=== PATIENT | female | born 1980 | race Caucasian/White ===

== ENCOUNTER 2016-12-22 00:13 | Emergency (ER) | payer OTHER ==
--- NOTE | 2016-12-22 00:37 | ERPHSYRPT ---
- History of Present Illness Time Seen by Provider: 12/22/16 00:30 Source: patient Exam Limitations: no limitations Physician History: States "I think I'm withdrawing from opiates." Pt. buys Morphine and Dilaudid from the streets and last one was last night. Staying at home with mother and threatened to use razor blade to harm self. No previous suicidal attempts. Previously treated [facility][1] for drug addiction. States unemployed presently. Argument with mother about money, so she could go and buy pain. States used marijuana for "severe arthritis." Timing/Duration: today Severity: moderate Associated Symptoms: nausea, other (hurting all over), No vomiting, No headaches , No loss of appetite Allergies/Adverse Reactions: No Known Drug Allergies Allergy (Unverified 12/22/16 00:41) Home Medications: No Home Meds 1 ea MC UD 06/03/15 [History] Hx Tetanus, Diphtheria Vaccination/Date Given: Yes (up to date) Hx Influenza Vaccination/Date Given: No Hx Pneumococcal Vaccination/Date Given: No - Review of Systems Constitutional: No Fever, No Chills Eyes: No Symptoms Ears, Nose, & Throat: No Symptoms Respiratory: No Cough, No Dyspnea Cardiac: No Chest Pain, No Edema, No Syncope Abdominal/Gastrointestinal: No Abdominal Pain, No Nausea, No Vomiting, No Diarrhea Genitourinary Symptoms: No Dysuria Musculoskeletal: No Back Pain, No Neck Pain Skin: No Rash Neurological: No Dizziness, No Focal Weakness, No Sensory Changes Psychological: Drug Abuse, Anxiety, No Suicidal Ideations, No Hallucinations Endocrine: No Symptoms All Other Systems: Reviewed and Negative - Past Medical History Pertinent Past Medical History: Yes Neurological History: No Pertinent History ENT History: No Pertinent History Cardiac History: No Pertinent History Respiratory History: No Pertinent History Endocrine Medical History: No Pertinent History Musculoskeletal History: Arthritis GI Medical History: No Pertinent History History: No Pertinent History Psycho-Social History: No Pertinent History Female Reproductive Disorders: No Pertinent History Other Medical History: Chronic back pain, Hepatitis C - Past Surgical History Past Surgical History: Yes Gastrointestinal: Cholecystectomy Other Surgical History: Left knee, Back - Social History Smoking Status: Current every day smoker How long have you smoked: 8 Exposure to second hand smoke: Yes Alcohol Use: Socially Drug Use: marijuana, narcotics Patient Lives Alone: No Significant Family History: no pertinent family hx - Female History Hx Now: No - Nursing Vital Signs Nursing Vital Signs: Initial Vital Signs Temperature 98.5 F Temperature Source Oral Pulse Rate 68 Respiratory Rate 16 Blood Pressure [Right Arm] 108/78 Pain Intensity 6 - Physical Exam General Appearance: no apparent distress, alert, other (flat affect) Eye Exam: PERRL/EOMI, eyes nml inspection Ears, Nose, Throat Exam: normal ENT inspection, TMs normal, pharynx normal, moist mucous membranes Neck Exam: normal inspection, non-tender, supple, full range of motion Respiratory Exam: normal breath sounds, lungs clear, No respiratory distress Cardiovascular Exam: regular rate/rhythm, normal heart sounds, normal peripheral pulses Gastrointestinal/Abdomen Exam: soft, normal bowel sounds, No tenderness, No mass Back Exam: normal inspection, normal range of motion, No CVA tenderness, No vertebral tenderness Extremity Exam: normal inspection, normal range of motion, pelvis stable Neurologic Exam: alert, oriented x 3, cooperative, normal mood/affect, nml cerebellar function, nml station & gait, sensation nml, No motor deficits Skin Exam: normal color, warm, dry, No rash Lymphatic Exam: No adenopathy SpO2: 98 Oxygen Delivery: Room Air Comments: 12/22/16 01:54 psych exam: Patient currently denies any suicidal or homicidal ideations. Patient denies any visual or her or auditory hallucination. Ordered Tests: Active Orders 24 hr Category Date Time Status ACETAMINOPHEN Stat Lab 12/22/16 00:55 Completed BMP Stat Lab 12/22/16 00:55 Completed CBC W DIFF Stat Lab 12/22/16 00:55 Completed Ethyl Alcohol,Urine Stat Lab 12/22/16 00:50 Completed HCG,QUALITATIVE URINE Stat Lab 12/22/16 00:50 Completed SALICYLATE Stat Lab 12/22/16 00:55 Completed UA W/ MICROSCOPIC Stat Lab 12/22/16 00:50 Completed Urine Triage Profile Stat Lab 12/22/16 00:50 Completed Medication Summary Discontinued Medications Generic Name Dose Route Start Last Admin Trade Name Eliecerq PRN Reason Stop Dose Admin Acetaminophen 1,000 mg 12/22/16 00:46 12/22/16 00:50 Tylenol Extra Strength 500 Mg PO 12/22/16 00:47 1,000 mg STAT ONE Administration Acetaminophen Confirm 12/22/16 00:47 Tylenol Extra Strength 500 Mg Administered 12/22/16 00:48 Dose 1,000 mg .ROUTE .STK-MED ONE Lab/Rad Data: Laboratory Result Diagrams 12/22/16 00:55 12/22/16 00:55 Laboratory Results 12/22/16 12/22/16 12/22/16 Range/Units 00:55 00:55 00:50 WBC 8.7 (4.0-10.5) K/mm3 RBC 4.96 (4.1-5.4) M/mm3 Hgb 13.7 (12.0-16.0) gm/dl Hct 41.2 (35-47) % MCV 83.1 (78-100) fl MCH 27.6 (26-32) pg MCHC 33.3 (32-36) g/dl RDW 14.1 H (11.5-14.0) % Plt Count 318 (150-450) K/mm3 MPV 9.8 H (6-9.5) fl Gran % 60.3 (36.0-66.0) % Lymphocytes % 31.3 (24.0-44.0) % Monocytes % 6.7 (0.0-12.0) % Eosinophils % 1.5 (0.00-5.0) % Basophils % 0.2 (0.0-0.4) % Basophils # 0.02 (0-0.4) Sodium 143 (136-145) mEq/L Potassium 3.9 (3.5-5.1) mEq/L Chloride 106 (98-107) mEq/L Carbon Dioxide 26.2 (21-32) mEq/L Anion Gap 14.3 (5-15) MEQ/L BUN 13 (9-20) mg/dL Creatinine 0.85 (0.55-1.30) mg/dl Estimated GFR > 60 ML/MIN Glucose 98 (70-110) MG/DL Calcium 9.1 (8.5-10.1) mg/dL Ur Collection Type Urine Color (YELLOW) Urine Appearance (CLEAR) Urine pH (5-6) Ur Specific [place] (1.005-1.025) Urine Protein (Negative) Urine Glucose (UA) (NEGATIVE) mg/dL Urine Ketones (NEGATIVE) Urine Nitrite (NEGATIVE) Urine Bilirubin (NEGATIVE) Urine Urobilinogen (0-1) mg/dL Urine WBC (Auto) (NEGATIVE) Urine RBC (Auto) (0-5) Jan/ul Urine Microscopic RBC (0-2) /HPF Ur Epithelial Cells (FEW) /HPF Urine Bacteria (NEGATIVE) /HPF Urine HCG, Qual NEGATIVE (Negative) Salicylates 4.8 (2.8-20.0) mg/dl Urine Opiates Level (NEGATIVE) Ur Methadone (NEGATIVE) Acetaminophen < 2.0 L (10-30) ug/ml Urine Barbiturates (NEGATIVE) Ur Phencyclidine (PCP) (NEGATIVE) Urine Amphetamine (NEGATIVE) U Benzodiazepine Level (NEGATIVE) Urine Cocaine (NEGATIVE) Urine Marijuana (THC) (NEGATIVE) Urine Ethyl Alcohol (0.00-20) mg/dl Specimen Received 12/22/16 12/22/16 12/22/16 Range/Units 00:50 00:50 00:50 WBC (4.0-10.5) K/mm3 RBC (4.1-5.4) M/mm3 Hgb (12.0-16.0) gm/dl Hct (35-47) % MCV (78-100) fl MCH (26-32) pg MCHC (32-36) g/dl RDW (11.5-14.0) % Plt Count (150-450) K/mm3 MPV (6-9.5) fl Gran % (36.0-66.0) % Lymphocytes % (24.0-44.0) % Monocytes % (0.0-12.0) % Eosinophils % (0.00-5.0) % Basophils % (0.0-0.4) % Basophils # (0-0.4) Sodium (136-145) mEq/L Potassium (3.5-5.1) mEq/L Chloride (98-107) mEq/L Carbon Dioxide (21-32) mEq/L Anion Gap (5-15) MEQ/L BUN (9-20) mg/dL Creatinine (0.55-1.30) mg/dl Estimated GFR ML/MIN Glucose (70-110) MG/DL Calcium (8.5-10.1) mg/dL Ur Collection Type CLEAN CATCH Urine Color YELLOW (YELLOW) Urine Appearance CLEAR (CLEAR) Urine pH 5.5 5.5 (5-6) Ur Specific [place] >=1.030 (1.005-1.025) Urine Protein TRACE (Negative) Urine Glucose (UA) NEGATIVE (NEGATIVE) mg/dL Urine Ketones TRACE (NEGATIVE) Urine Nitrite NEGATIVE (NEGATIVE) Urine Bilirubin NEGATIVE (NEGATIVE) Urine Urobilinogen 0.2 (0-1) mg/dL Urine WBC (Auto) NEGATIVE (NEGATIVE) Urine RBC (Auto) TRACE NON-HEM (0-5) Jan/ul Urine Microscopic RBC 0-2 (0-2) /HPF Ur Epithelial Cells FEW (FEW) /HPF Urine Bacteria RARE (NEGATIVE) /HPF Urine HCG, Qual (Negative) Salicylates (2.8-20.0) mg/dl Urine Opiates Level NEG. (NEGATIVE) Ur Methadone NEG. (NEGATIVE) Acetaminophen (10-30) ug/ml Urine Barbiturates NEG. (NEGATIVE) Ur Phencyclidine (PCP) NEG. (NEGATIVE) Urine Amphetamine NEG. (NEGATIVE) U Benzodiazepine Level NEG. (NEGATIVE) Urine Cocaine NEG. (NEGATIVE) Urine Marijuana (THC) POS. (NEGATIVE) Urine Ethyl Alcohol < 3 (0.00-20) mg/dl Specimen Received 12/22/16:0050 - Progress Progress: improved Progress Note: 12/22/16 01:57 [facility] psychiatric unit was notified and informed about patient. Awaiting steam conditioner operatorbingo caller to determine disposition. 12/22/16 04:[address] [facility] and they recommend that patient to be treated for drug addiction. Several facilities were discussed. We will call and informed them about patient. 12/22/16 06:44 patient was accepted for further care by Shantell Pierre. She will be transfer via ambulance to this facility. Patient remains hemodynamically stable , lying on stretcher bed comfortably and does not appear to be any acute distress. 12/22/16 06:47 Counseled pt/family regarding: diagnosis - Departure Time of Disposition: 04:28 Departure Disposition: Transfer ([facility]) Clinical Impression: Chemical dependency Condition: Stable Critical Care Time: No Referrals: SANTY HARO MD [Primary Care Provider] -
[2016-12-22] MEDS ORDERED: TYLENOL EXTRA STRENGTH 500 MG PO ONE (00:46)
[2016-12-22] MEDS ORDERED: TYLENOL EXTRA STRENGTH 500 MG ONE ×2 (00:47→06:49)
[2016-12-22 01:02] LABS: BASOPHIL % 0.2 % (0.0-0.4); Eosinophil % 1.5 % (0.00-5.0); Granulocytes % 60.3 % (36.0-66.0); Lymphocytes % 31.3 % (24.0-44.0); Mean Cell Volume 83.1 fl (78-100); Mean Corpuscular Hemoglobin 27.6 pg (26-32); Mean Platelet Volume 9.8 fl (6-9.5); Monocytes % 6.7 % (0.0-12.0); Platelet Count 318 K/mm3 (150-450); Red Blood Count 4.96 M/mm3 (4.1-5.4); Red Cell Distribution Width 14.1 % (11.5-14.0); White Blood Count 8.7 K/mm3 (4.0-10.5)
[2016-12-22 01:08] LABS: Collection Type CLEAN CATCH
[2016-12-22 01:09] LABS: Bacteria RARE /HPF (NEGATIVE); COMPLETE URINE MICROSCOPIC? YES; Epithelial Cells FEW /HPF (FEW); Ph 5.5 (5-6)
[2016-12-22 01:24] LABS: ANION GAP 14.3 MEQ/L (5-15); BLOOD UREA NITROGEN 13 mg/dL (9-20); CHLORIDE 106 mEq/L (98-107); Carbon Dioxide 26.2 mEq/L (21-32); Glucose 98 MG/DL (70-110); Potassium 3.9 mEq/L (3.5-5.1); SODIUM 143 mEq/L (136-145)
[2016-12-22 01:26] LABS: ACETAMINOPHEN < 2.0 ug/ml (10-30)
[2016-12-22 04:23] VITALS: O2SAT 98
[2016-12-22] MEDS: TYLENOL EXTRA STRENGTH 500 MG PO ONE ×2 (06:50→06:56)
[2016-12-22 07:21] VITALS: BP 128/78; PULSE 72
== END 2016-12-22 07:24 | disposition short-term general hospital (02) ==
LOC: ED 00:13
DX: F11.23 Opioid dependence with withdrawal (principal)
CPT/HCPCS: 36415; 80048; 80307; 80320; 81000; 83986; 84703; 85025; 99283; 99284; 99285; G0481

== ENCOUNTER 2018-03-08 10:24 | Emergency (ER) | payer OTHER ==
--- NOTE | 2018-03-08 11:06 | ERPHSYRPT ---
- History of Present Illness Time Seen by Provider: 03/08/18 10:53 Source: patient Exam Limitations: no limitations Physician History: Pt started c/o itching rash on her shoulders 3 days ago. She denies other complaints, no cough, fever, SOB. She denies taking new medications. Timing/Duration: day(s) (3) Quality: itchy Severity: mild Location: torso Possible Causes: no cause identified Allergies/Adverse Reactions: No Known Drug Allergies Allergy (Verified 03/08/18 10:51) Home Medications: Desvenlafaxine [Desvenlafaxine ER] 50 mg PO DAILY 03/08/18 [History] Methylphenidate [Daytrana] 10 mg TOP DAILY 03/08/18 [History] Quetiapine Fumarate [Quetiapine Fumarate ER] 50 mg PO DAILY 03/08/18 [History] Quetiapine Fumarate [Quetiapine Fumarate ER] 200 mg PO HS 03/08/18 [History] Hx Tetanus, Diphtheria Vaccination/Date Given: Yes (up to date) Hx Influenza Vaccination/Date Given: No Hx Pneumococcal Vaccination/Date Given: No - Review of Systems Constitutional: No Symptoms Skin: Pruritis, Rash All Other Systems: Reviewed and Negative - Past Medical History Pertinent Past Medical History: Yes Neurological History: No Pertinent History ENT History: No Pertinent History Cardiac History: No Pertinent History Respiratory History: No Pertinent History Endocrine Medical History: No Pertinent History Musculoskeletal History: Arthritis GI Medical History: No Pertinent History History: No Pertinent History Psycho-Social History: No Pertinent History Female Reproductive Disorders: No Pertinent History Other Medical History: Chronic back pain, Hepatitis C - Past Surgical History Past Surgical History: Yes Gastrointestinal: Cholecystectomy Other Surgical History: Left knee, Back - Social History Smoking Status: Current every day smoker How long have you smoked: 8 Exposure to second hand smoke: Yes Alcohol Use: Socially Drug Use: marijuana, narcotics Patient Lives Alone: No Significant Family History: no pertinent family hx - Physical Exam General Appearance: no apparent distress Eye Exam: eyes nml inspection Ears, Nose, Throat Exam: normal ENT inspection, pharynx normal Neck Exam: normal inspection, non-tender, supple Respiratory Exam: normal breath sounds, lungs clear, No chest tenderness Cardiovascular Exam: regular rate/rhythm, normal heart sounds, normal peripheral pulses Gastrointestinal/Abdomen Exam: soft, normal bowel sounds, No tenderness Back Exam: normal inspection Extremity Exam: normal inspection Neurologic Exam: alert, oriented x 3 Skin Exam: normal color, warm, dry, rash (few 4-6 mm raised, salmon colred spots on both anterior shoulders, no vesicules or other lesions. ) Lymphatic Exam: No adenopathy SpO2 Interpretation: normal Oxygen Delivery: Room Air - Course Nursing assessment & vital signs reviewed: Yes - Progress Progress: unchanged Progress Note: 03/08/18 11:06 Pt has been stable, afebrile. - Departure Time of Disposition: 11:06 Departure Disposition: Home Clinical Impression: Tinea corporis Condition: Stable Critical Care Time: No Referrals: LAZARA RICHARD [Primary Care Provider] - Additional Instructions: Keep area dry, use ointment BID, follow up with your doctor in 1-2 weeks! Prescriptions: Clotrimazole Cream 30 gm [Lotrimin Cream 30 gm] 15 gm TP BID #1 cream
[2018-03-08 11:30] VITALS: BP 113/89; PULSE 64; O2SAT 99
== END 2018-03-08 11:30 | disposition home or self-care (01) ==
LOC: ED 10:24
DX: B35.4 Tinea corporis (principal); Z79.899 Other long term (current) drug therapy
CPT/HCPCS: 99281; 99283

== ENCOUNTER 2020-04-20 08:53 | Emergency (ER) | payer MEDICAID, OTHER ==
[2020-04-20] MEDS ORDERED: TORAdol 30 mg Injection IM ONE (09:17)
[2020-04-20] MEDS ORDERED: TORAdol 30 mg Injection ONE (09:19)
--- NOTE | 2020-04-20 09:23 | ERPHSYRPT ---
- History of Present Illness Time Seen by Provider: 04/20/20 09:10 Source: patient Exam Limitations: no limitations Patient Subjective Stated Complaint: Pt states "For the past week when I get off work my feet have been really hurting. Today I was at work and it feels like electric shocks going into my feet." Triage Nursing Assessment: Pt presented alert and oriented X 3, skin wpd pt ambulates with a slow limping gait, able to speak in clear full sentences. Pt feet not swollen, no bruising noted. Physician History: Patient is a 39-year-old female presents to our ED with complaints of bilateral feet pain. Patient states that pain is chronic but has gotten worse over the past several days. 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 Patient is on her feet 8 hours/day almost daily. After working an 8-hour shift patient experiences a deep aching sensation to both feet. The pain is primarily at the arch and dorsum of her feet. She occasionally experiences a sharp shooting sensation of her leg. No history of VTE. No calf pain. Homans sign negative. No chest pain or shortness of breath. Pain reproduced with weightbearing and palpation to the instep and dorsum of her foot. Pain significantly improves with rest. Patient states on her days off of work she essentially experiences minimal to no pain. Patient denies trauma. No falls. No blunt injuries. Patient foot pain occurs during the and of her work shifts and later after. Patient denies new shoe wear. Patient shoes were examined by ED MD. Dr. See also a licensed physical therapist and has experience with foot pathology and examining shoe wear. Patient shoe provides no arch support. Patient shoes are worn. Patient states she is otherwise generally healthy. Patient voices no other complaints at this time. Method of Injury: other (Prolonged walking and weightbearing. Overutilization injury.) Allergies/Adverse Reactions: No Known Drug Allergies Allergy (Verified 03/08/18 10:51) Home Medications: Desvenlafaxine [Desvenlafaxine ER] 50 mg PO DAILY 03/08/18 [History] Quetiapine Fumarate [Quetiapine Fumarate ER] 50 mg PO DAILY 03/08/18 [History] Quetiapine Fumarate [Quetiapine Fumarate ER] 200 mg PO HS 03/08/18 [History] Amphet Asp/Amphet/D-Amphet [Dextroamp-Amphet ER 20 mg Cap] 20 mg PO BID [History] Hx Tetanus, Diphtheria Vaccination/Date Given: No Hx Influenza Vaccination/Date Given: No Hx Pneumococcal Vaccination/Date Given: No Immunizations Up to Date: Yes Travel Risk - International Travel Have you traveled outside of the country in past 3 weeks: No Have you or anyone close to you been diagnosed with or: No Do your reside in a community with a known COVID-19 case?: Yes If Yes where:: [place] - Coronavirus Screening Has patient experienced Coronavirus symptoms: No - Review of Systems Constitutional: No Symptoms, No Fever, No Chills Eyes: No Symptoms Ears, Nose, & Throat: No Symptoms Respiratory: No Symptoms, No Cough, No Dyspnea Cardiac: No Symptoms, No Chest Pain, No Edema, No Syncope Abdominal/Gastrointestinal: No Symptoms, No Abdominal Pain, No Nausea, No Vomiting, No Diarrhea Genitourinary Symptoms: No Symptoms, No Dysuria Musculoskeletal: No Symptoms, Other (Bilateral foot pain.), No Back Pain, No Neck Pain Skin: No Symptoms, No Rash Neurological: No Symptoms, No Dizziness, No Focal Weakness, No Sensory Changes Psychological: No Symptoms Endocrine: No Symptoms Hematologic/Lymphatic: No Symptoms Immunological/Allergic: No Symptoms All Other Systems: Reviewed and Negative - Past Medical History Pertinent Past Medical History: Yes Neurological History: No Pertinent History ENT History: No Pertinent History Cardiac History: No Pertinent History Respiratory History: No Pertinent History Endocrine Medical History: No Pertinent History Musculoskeletal History: Arthritis GI Medical History: No Pertinent History History: No Pertinent History Psycho-Social History: No Pertinent History Female Reproductive Disorders: No Pertinent History Other Medical History: Chronic back pain, Hepatitis C - Past Surgical History Past Surgical History: Yes Gastrointestinal: Cholecystectomy Other Surgical History: Left knee, Back - Social History Smoking Status: Current every day smoker How long have you smoked: years Exposure to second hand smoke: Yes Alcohol Use: Socially Drug Use: marijuana Patient Lives Alone: No Significant Family History: no pertinent family hx - Female History Hx Last Menstrual Period: 04/05/2020 Hx Now: No - Nursing Vital Signs Nursing Vital Signs: Initial Vital Signs Temperature 97.8 F 04/20/20 08:59 Pulse Rate 82 04/20/20 08:59 Respiratory Rate 22 04/20/20 08:59 Blood Pressure 166/92 04/20/20 08:59 O2 Sat by Pulse Oximetry 98 04/20/20 08:59 Pain Scale Pain Intensity 7 - Physical Exam General Appearance: alert Eyes, Ears, Nose, Throat Exam: moist mucous membranes Neck Exam: non-tender, supple Cardiovascular/Respiratory Exam: chest non-tender, normal breath sounds, regular rate/rhythm, no respiratory distress Gastrointestinal/Abdominal Exam: non-tender, guarding Back Exam: normal inspection, No vertebral tenderness Hips Exam: bilateral: non-tender, normal inspection, normal range of motion, no evidence of injury Legs Exam: bilateral leg: non-tender, normal inspection, normal range of motion , no evidence of injury Knees Exam: bilateral knee: non-tender, normal inspection, normal range of motion, no evidence of injury Ankle Exam: bilateral ankle: non-tender, normal inspection, normal range of motion, no evidence of injury Foot Exam: bilateral foot: soft tissue tenderness (Patient has tenderness palpation at the arch of both feet. There is some tenderness along the plantar fascia. Most of her tenderness is at the arch and dorsum of her feet. Overlying soft tissue intact. No signs of trauma. Compartments are soft. Cap refill less than 2 seconds. Sensation to light touch intact. Motor function within normal limits. Normal function EHL FHL DF and PF.) Neuro/Tendon Exam: normal sensation, normal motor functions, no evidence tendon injury, No motor deficit Mental Status Exam: alert, oriented x 3, cooperative Skin Exam: normal color, warm, dry SpO2 Interpretation: normal SpO2: 98 O2 Delivery: Room Air - Course Nursing assessment & vital signs reviewed: Yes Ordered Tests: Medication Summary Discontinued Medications Generic Name Dose Route Start Last Admin Trade Name Galo PRN Reason Stop Dose Admin Ketorolac Tromethamine 30 mg 04/20/20 09:17 04/20/20 09:20 Toradol 30 Mg Injection IM 04/20/20 09:18 30 mg STAT ONE Administration Ketorolac Tromethamine Confirm 04/20/20 09:19 Toradol 30 Mg Injection Administered 04/20/20 09:20 Dose 30 mg .ROUTE .STK-MED ONE - Progress Progress: improved Progress Note: 04/20/20 09:38 Patient denies the possibility of . She has no allergy to NSAIDs. Patient received Toradol IM. Patient's pain is likely due to repetitive motion , persistent long periods of walking while at work, pronated feet and collapsed arches and excessive weight due to obesity. Patient referred to podiatry for further evaluation and possible customized foot orthotics. Patient given a work note for 4 days off. Upon return patient should have more frequent rest periods until long-term resolution/foot orthotics are received Plan of care discussed with patient. She agrees to follow-up as indicated/ discussed. Patient voices no other complaints or concerns at this time. Counseled pt/family regarding: diagnosis, need for follow-up - Departure Departure Disposition: Home Clinical Impression: Pronated foot, Fallen arches, Repetitive motion disorder of right foot, Repetitive motion disorder of left foot Condition: Stable Critical Care Time: No Referrals: LAZARA RICHARD [Primary Care Provider] - KAMILA MONTEMAYOR [PODIATRY STAFF] - Additional Instructions: Please call Dr. Montemayor at the [facility] in [place]. Telephone number is area code [phone] Discharge/Care Plan TIMMY BROWN GANESH was seen on 04/20/20 in the Emergency Room. The patient was counseled regarding Diagnosis,Lab results, Imaging studies, need for follow up and when to return to the Emergency Room. Prescriptions given: Discharge Note I have spoken with the patient and/or caregivers. I have explained the patient' s condition, diagnosis and treatment plan based on the information available to me at this time. I have answered the patient's and/or caregiver's questions and addressed any concerns. The patient and/or caregivers have as good understanding of the patient's diagnosis, condition and treatment plan as can be expected at this point. The vital signs have been stable. The patient's condition is stable and appropriate for discharge from the emergency department. The patient will pursue further outpatient evaluation with the primary care physician or other designated or consulting physician as outlined in the discharge instructions. The patient and/or caregivers are agreeable to this plan of care and follow-up instructions have been explained in detail. The patient and/or caregivers have received these instruction. The patient/and or caregivers are aware that any significant change in condition or worsening of symptoms should prompt an immediate return to this or the closest emergency department or call 911. Forms: Work/School Release Form
[2020-04-20 09:27] VITALS: BP 122/83; PULSE 71
[2020-04-20 09:30] VITALS: O2SAT 98
== END 2020-04-20 09:40 | disposition home or self-care (01) ==
LOC: ED 08:53
DX: M21.6X2 Other acquired deformities of left foot (principal); M21.6X1 Other acquired deformities of right foot; M21.42 Flat foot [pes planus] (acquired), left foot; M21.41 Flat foot [pes planus] (acquired), right foot; X50.3XXA Overexertion from repetitive movements, initial encounter; Y93.01 Activity, walking, marching and hiking; Y92.511 Restaurant or cafe as the place of occurrence of the external cause; Y99.0 Civilian activity done for income or pay
CPT/HCPCS: 96372; 99283; J1885

== ENCOUNTER 2020-05-21 09:23 | Emergency (ER) | payer MEDICAID ==
[2020-05-21] MEDS ORDERED: SILVADENE 50 GM TP ONE ×2 (09:50→09:52)
--- NOTE | 2020-05-21 09:58 | ERPHSYRPT ---
- History of Present Illness Time Seen by Provider: 05/21/20 09:53 Source: patient Exam Limitations: no limitations Patient Subjective Stated Complaint: Pt burned her upper abdomen on a steam burner while working at [employer] 2 days ago, pt states that the pain has gotten worse now that it is peeling Triage Nursing Assessment: Pt brought self to the ER, vitals wnl, pt rates pain on abdomen as 9/10, 7x5 cm burn that has blistered and peeled Physician History: Pt burned her upper abdomen on a steam burner while working at [employer] 2 days ago, pt states that the pain has gotten worse now that it is peeling Timing/Duration: day(s) (two days ago) Quality: burning Severity: mild Location: torso Associated Symptoms: denies symptoms Allergies/Adverse Reactions: No Known Drug Allergies Allergy (Verified 05/21/20 09:35) Home Medications: Desvenlafaxine [Desvenlafaxine ER] 50 mg PO DAILY 03/08/18 [History] Quetiapine Fumarate [Quetiapine Fumarate ER] 50 mg PO DAILY 03/08/18 [History] Quetiapine Fumarate [Quetiapine Fumarate ER] 200 mg PO HS 03/08/18 [History] Amphet Asp/Amphet/D-Amphet [Dextroamp-Amphet ER 20 mg Cap] 20 mg PO BID 04/20/20 [History] Hx Tetanus, Diphtheria Vaccination/Date Given: No Hx Influenza Vaccination/Date Given: No Hx Pneumococcal Vaccination/Date Given: No Travel Risk - International Travel Have you traveled outside of the country in past 3 weeks: No - Coronavirus Screening Are you exhibiting any of the following symptoms?: No Close contact with a COVID-19 positive Pt in past 14-21 Days: No - Review of Systems Constitutional: No Symptoms Eyes: No Symptoms Ears, Nose, & Throat: No Symptoms Respiratory: No Symptoms Cardiac: No Symptoms Abdominal/Gastrointestinal: No Symptoms Genitourinary Symptoms: No Symptoms Musculoskeletal: No Symptoms Skin: Cellulitis Neurological: No Symptoms Psychological: No Symptoms Endocrine: No Symptoms Hematologic/Lymphatic: No Symptoms - Past Medical History Pertinent Past Medical History: Yes Neurological History: No Pertinent History ENT History: No Pertinent History Cardiac History: No Pertinent History Respiratory History: No Pertinent History Endocrine Medical History: No Pertinent History Musculoskeletal History: Arthritis GI Medical History: No Pertinent History History: No Pertinent History Psycho-Social History: No Pertinent History Female Reproductive Disorders: No Pertinent History Other Medical History: Chronic back pain, Hepatitis C - Past Surgical History Past Surgical History: Yes Gastrointestinal: Cholecystectomy Other Surgical History: Left knee, Back - Social History Smoking Status: Current every day smoker How long have you smoked: years Exposure to second hand smoke: Yes Alcohol Use: Socially Drug Use: marijuana Patient Lives Alone: No Significant Family History: no pertinent family hx - Female History Hx Last Menstrual Period: 05/21/2020 Hx Now: No - Nursing Vital Signs Nursing Vital Signs: Initial Vital Signs Temperature 98.3 F 05/21/20 09:28 Pulse Rate 92 H 05/21/20 09:28 Blood Pressure 116/100 05/21/20 09:28 O2 Sat by Pulse Oximetry 99 05/21/20 09:28 Pain Scale Pain Intensity 9 - Physical Exam General Appearance: no apparent distress Eye Exam: PERRL/EOMI Ears, Nose, Throat Exam: normal ENT inspection Neck Exam: normal inspection Respiratory Exam: normal breath sounds Cardiovascular Exam: regular rate/rhythm Gastrointestinal/Abdomen Exam: soft Pelvic Exam: not done Rectal Exam: deferred Back Exam: normal inspection Extremity Exam: normal inspection Neurologic Exam: alert, oriented x 3 Skin Exam: other (superficial burn on mid abdomen, ~1% area) SpO2: 99 O2 Delivery: Room Air Procedures - Laceration/Wound Repair Anterior Abdomen Wound Location: abdomen Wound Length (cm): 7 Wound's Depth, Shape: superficial Wound Explored: burn Irrigated: No Hibiclens Prep: No Sterile Dressing Applied?: Yes Progress: 05/21/20 09:57 silvadine applied - Course Nursing assessment & vital signs reviewed: Yes Ordered Tests: Active Orders 24 hr Category Date Time Status Wound Care STAT Care 05/21/20 09:51 Active Medication Summary Generic Name Dose Route Start Last Admin Trade Name Freq PRN Reason Stop Dose Admin Silver Sulfadiazine 50 gm 05/21/20 09:52 Silvadene 50 Gm TP 05/21/20 09:53 STAT ONE Discontinued Medications Generic Name Dose Route Start Last Admin Trade Name Freq PRN Reason Stop Dose Admin Silver Sulfadiazine Confirm 05/21/20 09:50 Silvadene 50 Gm Administered 05/21/20 09:51 Dose 50 gm TP .STK-MED ONE - Progress Progress: improved, pain not gone completely Counseled pt/family regarding: diagnosis, need for follow-up - Departure Departure Disposition: Home Clinical Impression: Burn Condition: Stable Critical Care Time: No Referrals: LAZARA RICHARD [Primary Care Provider] - Instructions: [facility] Prescriptions: Silver Sulfadiazine 50 gm [Silvadene 50 gm] 2 gm TP DAILY #50 cream.gm.
[2020-05-21 10:20] VITALS: BP 104/70; PULSE 78; O2SAT 97
== END 2020-05-21 10:20 | disposition home or self-care (01) ==
LOC: ED 09:23
DX: T21.12XA Burn of first degree of abdominal wall, initial encounter (principal); T31.0 Burns involving less than 10% of body surface; X13.1XXA Other contact with steam and other hot vapors, initial encounter; Y93.G2 Activity, grilling and smoking food; Y92.511 Restaurant or cafe as the place of occurrence of the external cause; Y99.0 Civilian activity done for income or pay
CPT/HCPCS: 99283; A9270-GY

== ENCOUNTER 2021-02-02 02:45 | Emergency (ER) | payer OTHER ==
[2021-02-02] MEDS ORDERED: BABY ASPIRIN 81 MG CHEW PO ONE (03:11)
[2021-02-02] MEDS ORDERED: MORPHINE SULFATE 2 MG INJ IV ONE (03:11)
[2021-02-02] MEDS ORDERED: Zofran 4 MG/2 ML VIAL IV ONE (03:11)
[2021-02-02] MEDS ORDERED: Zofran 4 MG/2 ML VIAL ONE (03:15)
[2021-02-02] MEDS ORDERED: MORPHINE SULFATE 2 MG INJ ONE (03:15)
--- NOTE | 2021-02-02 03:19 | ERPHSYRPT ---
<DEANNE HASSAN - Last Filed: 02/02/21 06:45> - History of Present Illness Time Seen by Provider: 02/02/21 02:55 Historian: patient Exam Limitations: no limitations Patient Subjective Stated Complaint: "My chest hurts so bad." Triage Nursing Assessment: . Physician History: This is a 40-year-old obese white female has a history of chronic back pain and hepatitis and is a smoker of cigarettes and presents with sudden onset of central nonradiating sharp chest pain that occurs with deep breathing. She states she is never had this before. She felt fine until she was sitting up in bed playing [employer] and she felt this pain. It has not gone away in the 2 hours that she has had the pain. She has not had a fever. She denies cough. She has no abdominal pain. She denies nausea vomiting diarrhea. Timing/Duration: today Activities at Onset: rest Quality: sharpness, stabbing Location: substernal, central Chest Pain Radiation: no radiation Severity of Pain-Max: moderate Severity of Pain-Current: moderate Associated Symptoms: hurts to breathe Prior Chest Pain/Cardiac Workup: no prior chest pain Nitro Today/Relief: no nitro taken today Aspirin Treatment Today: no aspirin today Allergies/Adverse Reactions: No Known Drug Allergies Allergy (Verified 02/02/21 02:52) Home Medications: Methylphenidate [Daytrana] 1 patch TD DAILY 02/02/21 [History] Quetiapine Fumarate [Seroquel Xr] 1 tab PO BID 02/02/21 [History] Sofosbuvir/Velpatasvir [Epclusa 400 mg-100 mg Tablet] 1 tab PO DAILY 02/02/21 [History] Hx Tetanus, Diphtheria Vaccination/Date Given: Yes Hx Influenza Vaccination/Date Given: Yes Hx Pneumococcal Vaccination/Date Given: No Travel Risk - International Travel Have you traveled outside of the country in past 3 weeks: No - Coronavirus Screening Are you exhibiting any of the following symptoms?: No Close contact with a COVID-19 positive Pt in past 14-21 Days: No - Review of Systems Constitutional: No Symptoms Eyes: No Symptoms Ears, Nose, & Throat: No Symptoms Respiratory: No Symptoms Cardiac: Chest Pain (With deep inspiration) Abdominal/Gastrointestinal: No Symptoms Genitourinary Symptoms: No Symptoms Musculoskeletal: No Symptoms Skin: No Symptoms Neurological: No Symptoms Psychological: No Symptoms Endocrine: No Symptoms Hematologic/Lymphatic: No Symptoms Immunological/Allergic: No Symptoms All Other Systems: Reviewed and Negative - Past Medical History Pertinent Past Medical History: Yes Neurological History: No Pertinent History ENT History: No Pertinent History Cardiac History: No Pertinent History Respiratory History: No Pertinent History Endocrine Medical History: No Pertinent History Musculoskeletal History: Arthritis GI Medical History: No Pertinent History History: No Pertinent History Psycho-Social History: No Pertinent History Female Reproductive Disorders: No Pertinent History Other Medical History: Chronic back pain, Hepatitis C - Past Surgical History Past Surgical History: Yes Gastrointestinal: Cholecystectomy Other Surgical History: Left knee, Back - Social History Smoking Status: Current every day smoker How long have you smoked: years Exposure to second hand smoke: Yes Alcohol Use: Socially Drug Use: marijuana Patient Lives Alone: No Significant Family History: no pertinent family hx - Female History Hx Now: No - Physical Exam General Appearance: no apparent distress, alert, anxiety, obese Eye Exam: PERRL/EOMI, eyes nml inspection Ears, Nose, Throat Exam: normal ENT inspection, moist mucous membranes Neck Exam: normal inspection, non-tender, supple, full range of motion Respiratory Exam: normal breath sounds, chest tenderness (Deep inspiration), lungs clear, airway intact, No respiratory distress Cardiovascular Exam: regular rate/rhythm, normal heart sounds, normal peripheral pulses Gastrointestinal/Abdomen Exam: soft, normal bowel sounds, No tenderness Pelvic Exam: not done Rectal Exam: not done Back Exam: normal inspection, normal range of motion, No CVA tenderness, No vertebral tenderness Extremity Exam: normal inspection, normal range of motion, pelvis stable Neurologic Exam: alert, oriented x 3, cooperative, 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 When comparing to EKG dated 02/28/2016 there are no changes.) - Progress Progress: improved Air Movement: good Progress Note: 02/02/21 06:46 Chest x-ray shows no acute cardiopulmonary process 02/02/21 06:55 Medical decision making: This patient continues to have chest pain although her work-up thus far is negative. We are waiting the second troponin. If this is elevated and in the abnormal range she will need to be transferred to facility that has cardiology. If this is also normal then I think the best approach is to perform a CTA of the chest. I have reviewed with Dr. Tafoya this patient, the pending lab results and go over my plan with him. He can make adjustments in that plan if necessary and add further testing. This was performed at shift change. Counseled pt/family regarding: lab results, need for follow-up, rad results - Departure Departure Disposition: Home Clinical Impression: Mediastinal lymphadenopathy Chest pain Qualifiers: Chest pain type: unspecified Qualified Code(s): R07.9 - Chest pain, unspecified Condition: Stable Critical Care Time: No Referrals: GALINA BRAN [NON-STAFF PHY W/O PRIVILEGES] - (1-2 days for re evaluation ) ZULAY GARCIA [COURTESY STAFF] - (1-2 days for further evaluation) LAZARA SIDDIQI [Primary Care Provider] - MOHSEN VINCENT [NON-STAFF PHY W/O PRIVILEGES] - (call for apt) Instructions: Chest Pain (DC), Lymphoma (DC) Additional Instructions: [facility] [place] IN 9AM FRIDAY WITH [employer]. Follow-up with primary care physician for for further evaluation of lymph adenopathy/lymphoma. May need appointment with CT surgery/hematology oncology to further define the mass around heart area. Take pain medications as needed. Return to ER for any worsening. Prescriptions: Prednisone 20 mg [Deltasone 20 mg] 60 mg PO DAILY 5 Days #15 tablet Tramadol HCl 50 mg [Ultram 50 mg] 50 mg PO TID PRN 4 Days #10 tablet PRN Reason: Pain <FAUSTINA TAFOYA - Last Filed: 02/02/21 16:02> - Nursing Vital Signs Nursing Vital Signs: Initial Vital Signs Temperature 98.2 F 02/02/21 02:45 Pulse Rate 80 02/02/21 02:45 Respiratory Rate 20 02/02/21 02:45 O2 Sat by Pulse Oximetry 98 02/02/21 02:45 Pain Scale Pain Intensity 4 Ordered Tests: Active Orders 24 hr Category Date Time Status Tray Server STAT Care 02/02/21 03:12 Completed EKG-ER Only STAT Care 02/02/21 03:11 Completed IV Insertion STAT Care 02/02/21 03:11 Completed Pulse Oximetry (ED) STAT Care 02/02/21 03:11 Completed CHEST 1 VIEW (PORTABLE) Stat Exams 02/02/21 03:11 Completed CHEST WITH CONTRAST [CT] Stat Exams 02/02/21 07:13 Completed CBC W DIFF Stat Lab 02/02/21 03:15 Completed CMP Stat Lab 02/02/21 03:15 Completed D-DIMER QUANTITATIVE Stat Lab 02/02/21 03:15 Completed NT PRO BNP Stat Lab 02/02/21 03:15 Completed PROTIME WITH INR Stat Lab 02/02/21 03:15 Completed TROPONIN Q3H Lab 02/02/21 03:15 Completed TROPONIN Q3H Lab 02/02/21 06:17 Completed TROPONIN Q3H Lab 02/02/21 09:10 Completed Transfer Order Routine Transfer 02/02/21 Ordered Medication Summary Discontinued Medications Generic Name Dose Route Start Last Admin Trade Name Freq PRN Reason Stop Dose Admin Al Hydrox/Mg Hydrox/Simethicone Confirm 02/02/21 08:12 Maalox Es 30 Ml Unit Dose Administered 02/02/21 08:13 Dose 30 ml .ROUTE .STK-MED ONE Aspirin 324 mg 02/02/21 03:11 02/02/21 03:15 Baby Aspirin 81 Mg Chew PO 02/02/21 03:12 324 mg STAT ONE Administration Famotidine 20 mg 02/02/21 08:09 02/02/21 08:13 Pepcid 20 Mg Vial IV 02/02/21 08:10 20 mg STAT ONE Administration Famotidine Confirm 02/02/21 08:11 Pepcid 20 Mg Vial Administered 02/02/21 08:12 Dose 20 mg IV .STK-MED ONE Lidocaine HCl Confirm 02/02/21 08:12 Xylocaine Hcl Viscous * Administered 02/02/21 08:13 Dose 15 ml .ROUTE .STK-MED ONE Magnesium Hydroxide 45 ml 02/02/21 08:09 02/02/21 08:13 Gi Cocktail 45 Ml (Maalox/Lidocaine) PO 02/02/21 08:10 45 ml STAT ONE Administration Methylprednisolone Sodium Succinate 125 mg 02/02/21 06:58 02/02/21 07:05 Solu-Medrol 125 Mg IV 02/02/21 06:59 125 mg STAT ONE Administration Methylprednisolone Sodium Succinate Confirm 02/02/21 07:03 Solu-Medrol 125 Mg Administered 02/02/21 07:04 Dose 125 mg .ROUTE .STK-MED ONE Morphine Sulfate 2 mg 02/02/21 03:11 02/02/21 03:16 Morphine Sulfate 2 Mg Inj IV 02/02/21 03:12 2 mg STAT ONE Administration Morphine Sulfate Confirm 02/02/21 03:15 Morphine Sulfate 2 Mg Inj Administered 02/02/21 03:16 Dose 2 mg .ROUTE .STK-MED ONE Morphine Sulfate 4 mg 02/02/21 04:57 02/02/21 05:00 Morphine Sulfate 4 Mg Inj IV 02/02/21 04:58 4 mg STAT ONE Administration Morphine Sulfate Confirm 02/02/21 04:59 Morphine Sulfate 4 Mg Inj Administered 02/02/21 05:00 Dose 4 mg .ROUTE .STK-MED ONE Morphine Sulfate 4 mg 02/02/21 07:53 02/02/21 07:55 Morphine Sulfate 4 Mg Inj IV 02/02/21 07:54 4 mg STAT ONE Administration Morphine Sulfate Confirm 02/02/21 07:54 Morphine Sulfate 4 Mg Inj Administered 02/02/21 07:55 Dose 4 mg .ROUTE .STK-MED ONE Ondansetron HCl 4 mg 02/02/21 03:11 02/02/21 03:16 Zofran 4 Mg/2 Ml Vial IV 02/02/21 03:12 4 mg STAT ONE Administration Ondansetron HCl Confirm 02/02/21 03:15 Zofran 4 Mg/2 Ml Vial Administered 02/02/21 03:16 Dose 4 mg .ROUTE .STK-MED ONE Lab/Rad Data: Laboratory Result Diagrams 02/02/21 03:15 02/02/21 03:15 Laboratory Results 02/02/21 02/02/21 02/02/21 Range/Units 09:10 06:17 03:15 WBC (4.0-10.5) K/mm3 RBC (4.1-5.4) M/mm3 Hgb (12.0-16.0) gm/dl Hct (35-47) % MCV (78-100) fl MCH (26-32) pg MCHC (32-36) g/dl RDW (11.5-14.0) % Plt Count (150-450) K/mm3 MPV (7.5-11.0) fl Gran % (36.0-66.0) % Eos # (Auto) (0-0.5) Absolute Lymphs (auto) (1.0-4.6) Absolute Monos (auto) (0.0-1.3) Lymphocytes % (24.0-44.0) % Monocytes % (0.0-12.0) % Eosinophils % (0.00-5.0) % Basophils % (0.0-0.4) % Absolute Granulocytes (1.4-6.9) Basophils # (0-0.4) PT (9.95-12.35) SECONDS INR (0.8-3.0) D-Dimer (215-500) ng/mL Sodium (137-145) mmol/L Potassium (3.5-5.1) mmol/L Chloride (98-107) mmol/L Carbon Dioxide (22-30) mmol/L Anion Gap (5-15) MEQ/L BUN (7-17) mg/dL Creatinine (0.52-1.04) mg/dL Estimated GFR ML/MIN Glucose (74-106) mg/dL Calcium (8.4-10.2) mg/dL Total Bilirubin (0.2-1.3) mg/dL AST (14-36) U/L ALT (0-35) U/L Alkaline Phosphatase (38-126) U/L Troponin I < 0.012 < 0.012 < 0.012 (0.000-0.034) ng/mL NT-Pro-B Natriuret Pep (0-450) pg/mL Serum Total Protein (6.3-8.2) g/dL Albumin (3.5-5.0) g/dL 02/02/21 02/02/21 02/02/21 Range/Units 03:15 03:15 03:15 WBC 10.7 H (4.0-10.5) K/mm3 RBC 4.64 (4.1-5.4) M/mm3 Hgb 13.3 (12.0-16.0) gm/dl Hct 39.6 (35-47) % MCV 85.3 (78-100) fl MCH 28.7 (26-32) pg MCHC 33.6 (32-36) g/dl RDW 13.3 (11.5-14.0) % Plt Count 342 (150-450) K/mm3 MPV 10.4 (7.5-11.0) fl Gran % 73.1 H (36.0-66.0) % Eos # (Auto) 0.09 (0-0.5) Absolute Lymphs (auto) 2.10 (1.0-4.6) Absolute Monos (auto) 0.68 (0.0-1.3) Lymphocytes % 19.6 L (24.0-44.0) % Monocytes % 6.3 (0.0-12.0) % Eosinophils % 0.8 (0.00-5.0) % Basophils % 0.2 (0.0-0.4) % Absolute Granulocytes 7.82 H (1.4-6.9) Basophils # 0.02 (0-0.4) PT 12.8 H (9.95-12.35) SECONDS INR 1.13 (0.8-3.0) D-Dimer < 215 L (215-500) ng/mL Sodium 140 (137-145) mmol/L Potassium 3.6 (3.5-5.1) mmol/L Chloride 107 (98-107) mmol/L Carbon Dioxide 21 L (22-30) mmol/L Anion Gap 15.9 H (5-15) MEQ/L BUN 7 (7-17) mg/dL Creatinine 0.68 (0.52-1.04) mg/dL Estimated GFR > 60.0 ML/MIN Glucose 100 (74-106) mg/dL Calcium 9.4 (8.4-10.2) mg/dL Total Bilirubin 0.40 (0.2-1.3) mg/dL AST 28 (14-36) U/L ALT 13 (0-35) U/L Alkaline Phosphatase 70 (38-126) U/L Troponin I (0.000-0.034) ng/mL NT-Pro-B Natriuret Pep 52.5 (0-450) pg/mL Serum Total Protein 7.9 (6.3-8.2) g/dL Albumin 4.4 (3.5-5.0) g/dL - Progress Progress Note: 02/02/21 09:13 Patient is checked out to me at shift change from Dr. Hassan with pending CTA results and second troponin. Patient still complaining of pain and I have given her morphine with some relief and also GI cocktail with Pepcid and feeling much better on reevaluation. Patient although reports she cannot have any antacids per GI because she is on hepatitis C medication course. 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 I would give her steroids to go home and recommended follow-up outpatient with primary care and also given referral for cardiothoracic and hematology oncology for further evaluation. Will give her symptomatic treatment for pain to go home. This point I do not think patient needs to be admitted or needs any further work-up and is stable for discharge. - Departure Departure Disposition: Home
[2021-02-02 03:46] LABS: Absolute Neutrophil Ct (ANC) 7.82 (1.4-6.9); BASOPHIL % 0.2 % (0.0-0.4); Basophil (Absolute #) 0.02 (0-0.4); Eosinophil % 0.8 % (0.00-5.0); Eosinophil (Absolute #) 0.09 (0-0.5); Hematocrit 39.6 % (35-47); Hemoglobin 13.3 gm/dl (12.0-16.0); Lymphocytes % 19.6 % (24.0-44.0); Mean Cell Volume 85.3 fl (78-100); Mean Corpuscular Hemoglobin 28.7 pg (26-32); Mean Corpuscular Hgb Concent. 33.6 g/dl (32-36); Mean Platelet Volume 10.4 fl (7.5-11.0); Monocyte (Absolute #) 0.68 (0.0-1.3); Monocytes % 6.3 % (0.0-12.0); Neutrophil % 73.1 % (36.0-66.0); Platelet Count 342 K/mm3 (150-450); Red Blood Count 4.64 M/mm3 (4.1-5.4); Red Cell Distribution Width 13.3 % (11.5-14.0); White Blood Count 10.7 K/mm3 (4.0-10.5)
[2021-02-02 03:52] LABS: ALBUMIN 4.4 g/dL (3.5-5.0); ALKALINE PHOSPHATASE 70 U/L (38-126); ANION GAP 15.9 MEQ/L (5-15); BLOOD UREA NITROGEN 7 mg/dL (7-17); CHLORIDE 107 mmol/L (98-107); Calcium 9.4 mg/dL (8.4-10.2); Carbon Dioxide 21 mmol/L (22-30); Creatinine 1 0.68 mg/dL (0.52-1.04); EST GLOMERULAR FILTRATION RATE > 60.0 ML/MIN; Glucose 100 mg/dL (74-106); Potassium 3.6 mmol/L (3.5-5.1); SGOT/AST 28 U/L (14-36); SGPT/ALT 13 U/L (0-35); SODIUM 140 mmol/L (137-145); Total Protein 7.9 g/dL (6.3-8.2)
[2021-02-02 04:03] LABS: NT PRO BNP 52.5 pg/mL (0-450)
[2021-02-02 04:27] LABS: INR 1.13 (0.8-3.0); PROTIME 12.8 SECONDS (9.95-12.35)
[2021-02-02 04:37] LABS: D-DIMER QUANTITATIVE < 215 ng/mL (215-500)
[2021-02-02] MEDS ORDERED: MORPHINE SULFATE 4 MG INJ IV ONE ×2 (04:57→07:53)
[2021-02-02] MEDS ORDERED: MORPHINE SULFATE 4 MG INJ ONE ×2 (04:59→07:54)
[2021-02-02] MEDS ORDERED: solu-MEDROL 125 MG IV ONE (06:58)
[2021-02-02] MEDS ORDERED: solu-MEDROL 125 MG ONE (07:03)
[2021-02-02] MEDS ORDERED: GI COCKTAIL 45 ML (Maalox/Lidocaine) PO ONE (08:09)
[2021-02-02] MEDS ORDERED: Pepcid 20 MG VIAL IV ONE ×2 (08:09→08:11)
[2021-02-02] MEDS ORDERED: XYLOCAINE HCl Viscous ONE (08:12)
[2021-02-02] MEDS ORDERED: MAALOX ES 30 ML UNIT DOSE ONE (08:12)
[2021-02-02 08:31] VITALS: BP 138/77; PULSE 67; O2SAT 95
--- NOTE | 2021-02-02 08:49 | XRAY ---
Indication: Chest pain, elevated d-dimer, and elevated WBC. Multiple contiguous axial images obtained through the chest using 100 cc Isovue 370 contrast and PE protocol. Comparison: None There is satisfactory opacification of the pulmonary arteries to include the lobar and segmental branches. No pulmonary embolus. Heart is not enlarged. There are a few matted noncalcified left epicardiac soft tissue masses, largest 1.9 x 4.0 cm possibly adenopathy as seen in pericardial lymphoma. Other benign and malignant pericardial tumors not completely excluded. No other mediastinal/hilar lymphadenopathy. Aorta is normal in course and caliber. Lungs demonstrate minimal bilateral dependent atelectasis and right lower lobe/lingula subsegmental atelectasis/scarring. No suspicious pulmonary mass/nodule, infiltrate, or effusion. Bony thorax intact with mild degenerative changes throughout the spine. Limited upper abdomen demonstrates fatty liver, 13 cm splenomegaly, and cholecystectomy clips. Impression: 1. Negative pulmonary embolus. No acute cardiopulmonary abnormalities. 2. Left pericardial soft tissue masses possibly lymphadenopathy. Other benign and malignant pericardial tumors not completely excluded. 3. Incidental fatty liver and splenomegaly.
--- NOTE | 2021-02-02 09:31 | XRAY ---
Indication: Pain. Comparison: February 28, 2016. Portable chest underinflated accentuating cardiopulmonary structures. No focal infiltrate, consolidation, or large effusion. Heart is not enlarged for AP portable technique. Bony thorax intact again with minimal degenerative changes. Impression: Nonacute underinflated chest.
== END 2021-02-02 10:16 | disposition home or self-care (01) ==
LOC: ED 02:45
DX: R59.1 Generalized enlarged lymph nodes (principal); R07.9 Chest pain, unspecified; M19.90 Unspecified osteoarthritis, unspecified site; Z72.0 Tobacco use; F41.9 Anxiety disorder, unspecified; B19.20 Unspecified viral hepatitis C without hepatic coma; Z79.899 Other long term (current) drug therapy
CPT/HCPCS: 36000; 36415; 71045; 71260; 80053; 83880; 84484; 85025; 85379; 85610; 93005; 93041; 94760; 96374; 96375; 96376; 99285; J2270; J2405; J2930; A9270-GY

== ENCOUNTER 2021-03-14 10:11 | Emergency (ER) | payer OTHER ==
[2021-03-14] MEDS ORDERED: BABY ASPIRIN 81 MG CHEW PO ONE (10:46)
[2021-03-14] MEDS ORDERED: MORPHINE SULFATE 4 MG INJ IV ONE (10:46)
[2021-03-14] MEDS ORDERED: Zofran 4 MG/2 ML VIAL IV ONE (10:46)
[2021-03-14] MEDS ORDERED: MORPHINE SULFATE 4 MG INJ ONE (10:51)
[2021-03-14] MEDS ORDERED: Zofran 4 MG/2 ML VIAL ONE (10:51)
[2021-03-14] MEDS ORDERED: BABY ASPIRIN 81 MG CHEW ONE (10:51)
--- NOTE | 2021-03-14 10:53 | ERPHSYRPT ---
- History of Present Illness Time Seen by Provider: 03/14/21 10:35 Historian: patient Exam Limitations: no limitations Patient Subjective Stated Complaint: Chest pain started this morning when she woke up. States she came to the ER before it got severe. Patient states she has been having chest pain and tightness while walking last week. Triage Nursing Assessment: patient to er appears to be SOB and in pain. States pain is 8/10 of stabbing pain in chest. States pain does not radiate. Patient states severe chest pain started this morning but has had pain with exercise within the last week. Physician History: 40 years old presented in the ER with chief complaint of sudden onset left-sided chest pain since morning she woke up, sharp stabbing moderate to severe intensity without any significant aggravating or relieving factors, nonradiating without any associated shortness of breath. Denies any palpitations. Does report having similar chest pain almost a month ago when she was diagnosed with a small pericardial lymphatic mass, was recommended outpatient CT surgery and oncology follow-up, PET scan was done which showed possible lymph nodes and she is supposed to have another CT done in couple of months. Timing/Duration: hour(s), constant, sudden, worse (She is excepted chart review ongoing for all) Activities at Onset: rest Quality: sharpness, stabbing Chest Pain Radiation: no radiation Severity of Pain-Max: severe Severity of Pain-Current: moderate Modifying Factors: Improves With: nothing Associated Symptoms: denies symptoms Prior Chest Pain/Cardiac Workup: non-cardiac Nitro Today/Relief: no nitro taken today Aspirin Treatment Today: no aspirin today Allergies/Adverse Reactions: No Known Drug Allergies Allergy (Verified 02/02/21 02:52) Home Medications: Methylphenidate [Daytrana] 1 patch TD DAILY 02/02/21 [History] Quetiapine Fumarate [Seroquel Xr] 1 tab PO BID 02/02/21 [History] Sofosbuvir/Velpatasvir [Epclusa 400 mg-100 mg Tablet] 1 tab PO DAILY 02/02/21 [History] Hx Tetanus, Diphtheria Vaccination/Date Given: Yes Hx Influenza Vaccination/Date Given: No Hx Pneumococcal Vaccination/Date Given: No Immunizations Up to Date: Yes Travel Risk - International Travel Have you traveled outside of the country in past 3 weeks: No - Coronavirus Screening Are you exhibiting any of the following symptoms?: No Close contact with a COVID-19 positive Pt in past 14-21 Days: No - Vaccine Status Have you recieved a Covid-19 vaccination: No - Review of Systems Constitutional: No Symptoms Eyes: No Symptoms Ears, Nose, & Throat: No Symptoms Respiratory: No Symptoms Cardiac: Chest Pain Abdominal/Gastrointestinal: No Symptoms Genitourinary Symptoms: No Symptoms Musculoskeletal: No Symptoms Skin: No Symptoms Neurological: No Symptoms Psychological: Anxiety Endocrine: No Symptoms Hematologic/Lymphatic: No Symptoms Immunological/Allergic: No Symptoms - Past Medical History Pertinent Past Medical History: Yes Neurological History: No Pertinent History ENT History: No Pertinent History Cardiac History: No Pertinent History Respiratory History: No Pertinent History Endocrine Medical History: No Pertinent History Musculoskeletal History: Arthritis GI Medical History: No Pertinent History History: No Pertinent History Psycho-Social History: No Pertinent History Female Reproductive Disorders: No Pertinent History Other Medical History: Chronic back pain, Hepatitis C, 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 - Past Surgical History Past Surgical History: Yes Gastrointestinal: Cholecystectomy Other Surgical History: Left knee, Back, gall bladder taken out - Social History Smoking Status: Current every day smoker How long have you smoked: 10 years Exposure to second hand smoke: Yes Alcohol Use: Socially Drug Use: marijuana Patient Lives Alone: No Significant Family History: no pertinent family hx - Female History Hx Last Menstrual Period: 02/15 Hx Now: (unkn) - Nursing Vital Signs Nursing Vital Signs: Initial Vital Signs Temperature 97.1 F 03/14/21 10:12 Pulse Rate 69 03/14/21 10:12 Blood Pressure 149/94 03/14/21 10:12 O2 Sat by Pulse Oximetry 98 03/14/21 10:12 Pain Scale Pain Intensity 7 - Physical Exam General Appearance: no apparent distress, alert Eye Exam: PERRL/EOMI, eyes nml inspection Ears, Nose, Throat Exam: normal ENT inspection, TMs normal, moist mucous membranes Neck Exam: normal inspection, non-tender, supple, full range of motion Respiratory Exam: normal breath sounds, lungs clear, No chest tenderness Cardiovascular Exam: regular rate/rhythm, normal heart sounds Gastrointestinal/Abdomen Exam: soft, normal bowel sounds, No tenderness Back Exam: normal inspection, normal range of motion Extremity Exam: normal inspection, normal range of motion Neurologic Exam: alert, oriented x 3, cooperative Skin Exam: normal color SpO2 Interpretation: normal SpO2: 98 O2 Delivery: Room Air - Course EKG Interpreted by Me: RATE (68), Sinus Rhythm, NORMAL AXIS, NORMAL INTERVALS, NORMAL QRS Ordered Tests: Active Orders 24 hr Category Date Time Status Ingredient Specialist STAT Care 03/14/21 10:47 Active EKG-ER Only STAT Care 03/14/21 10:46 Active CHEST 1 VIEW (PORTABLE) Stat Exams 03/14/21 10:47 Completed CBC W DIFF Stat Lab 03/14/21 10:11 Completed CMP Stat Lab 03/14/21 10:11 Completed D-DIMER QUANTITATIVE Stat Lab 03/14/21 10:11 Completed HCG,QUALITATIVE URINE Stat Lab 03/14/21 12:03 Completed NT PRO BNP Stat Lab 03/14/21 10:11 Completed TROPONIN Q3H Lab 03/14/21 10:11 Completed TROPONIN Q3H Lab 03/14/21 13:55 Completed TROPONIN Q3H Lab 03/14/21 17:00 Ordered TROPONIN Q3H Lab 03/14/21 20:00 Ordered TROPONIN Q3H Lab 03/14/21 23:00 Ordered Medication Summary Discontinued Medications Generic Name Dose Route Start Last Admin Trade Name Galo PRN Reason Stop Dose Admin Aspirin 324 mg 03/14/21 10:46 03/14/21 10:54 Baby Aspirin 81 Mg Chew PO 03/14/21 10:47 324 mg STAT ONE Administration Aspirin Confirm 03/14/21 10:51 Baby Aspirin 81 Mg Chew Administered 03/14/21 10:52 Dose 324 mg .ROUTE .STK-MED ONE Ketorolac Tromethamine 30 mg 03/14/21 12:04 03/14/21 12:14 Toradol 30 Mg Injection IV 03/14/21 12:05 30 mg STAT ONE Administration Ketorolac Tromethamine Confirm 03/14/21 12:12 Toradol 30 Mg Injection Administered 03/14/21 12:13 Dose 30 mg .ROUTE .STK-MED ONE Morphine Sulfate 4 mg 03/14/21 10:46 03/14/21 10:54 Morphine Sulfate 4 Mg Inj IV 03/14/21 10:47 4 mg STAT ONE Administration Morphine Sulfate Confirm 03/14/21 10:51 Morphine Sulfate 4 Mg Inj Administered 03/14/21 10:52 Dose 4 mg .ROUTE .STK-MED ONE Ondansetron HCl 4 mg 03/14/21 10:46 03/14/21 10:54 Zofran 4 Mg/2 Ml Vial IV 03/14/21 10:47 4 mg STAT ONE Administration Ondansetron HCl Confirm 03/14/21 10:51 Zofran 4 Mg/2 Ml Vial Administered 03/14/21 10:52 Dose 4 mg .ROUTE .STK-MED ONE Lab/Rad Data: Laboratory Result Diagrams 03/14/21 10:11 03/14/21 10:11 Laboratory Results 03/14/21 03/14/21 03/14/21 Range/Units 13:55 12:03 10:11 WBC (4.0-10.5) K/mm3 RBC (4.1-5.4) M/mm3 Hgb (12.0-16.0) gm/dl Hct (35-47) % MCV (78-100) fl MCH (26-32) pg MCHC (32-36) g/dl RDW (11.5-14.0) % Plt Count (150-450) K/mm3 MPV (7.5-11.0) fl Gran % (36.0-66.0) % Eos # (Auto) (0-0.5) Absolute Lymphs (auto) (1.0-4.6) Absolute Monos (auto) (0.0-1.3) Lymphocytes % (24.0-44.0) % Monocytes % (0.0-12.0) % Eosinophils % (0.00-5.0) % Basophils % (0.0-0.4) % Absolute Granulocytes (1.4-6.9) Basophils # (0-0.4) D-Dimer (215-500) ng/mL Sodium (137-145) mmol/L Potassium (3.5-5.1) mmol/L Chloride (98-107) mmol/L Carbon Dioxide (22-30) mmol/L Anion Gap (5-15) MEQ/L BUN (7-17) mg/dL Creatinine (0.52-1.04) mg/dL Estimated GFR ML/MIN Glucose (74-106) mg/dL Calcium (8.4-10.2) mg/dL Total Bilirubin (0.2-1.3) mg/dL AST (14-36) U/L ALT (0-35) U/L Alkaline Phosphatase (38-126) U/L Troponin I < 0.012 < 0.012 (0.000-0.034) ng/mL NT-Pro-B Natriuret Pep (0-450) pg/mL Serum Total Protein (6.3-8.2) g/dL Albumin (3.5-5.0) g/dL Urine HCG, Qual NEGATIVE (Negative) 03/14/21 03/14/21 03/14/21 Range/Units 10:11 10:11 10:11 WBC 13.8 H (4.0-10.5) K/mm3 RBC 5.01 (4.1-5.4) M/mm3 Hgb 14.3 (12.0-16.0) gm/dl Hct 42.7 (35-47) % MCV 85.2 (78-100) fl MCH 28.5 (26-32) pg MCHC 33.5 (32-36) g/dl RDW 13.3 (11.5-14.0) % Plt Count 386 (150-450) K/mm3 MPV 10.2 (7.5-11.0) fl Gran % 76.3 H (36.0-66.0) % Eos # (Auto) 0.01 (0-0.5) Absolute Lymphs (auto) 2.45 (1.0-4.6) Absolute Monos (auto) 0.80 (0.0-1.3) Lymphocytes % 17.7 L (24.0-44.0) % Monocytes % 5.8 (0.0-12.0) % Eosinophils % 0.1 (0.00-5.0) % Basophils % 0.1 (0.0-0.4) % Absolute Granulocytes 10.55 H (1.4-6.9) Basophils # 0.02 (0-0.4) D-Dimer < 215 L (215-500) ng/mL Sodium 141 (137-145) mmol/L Potassium 4.3 (3.5-5.1) mmol/L Chloride 109 H (98-107) mmol/L Carbon Dioxide 22 (22-30) mmol/L Anion Gap 14.2 (5-15) MEQ/L BUN 8 (7-17) mg/dL Creatinine 0.62 (0.52-1.04) mg/dL Estimated GFR > 60.0 ML/MIN Glucose 106 (74-106) mg/dL Calcium 9.8 (8.4-10.2) mg/dL Total Bilirubin 0.30 (0.2-1.3) mg/dL AST 33 (14-36) U/L ALT 20 (0-35) U/L Alkaline Phosphatase 74 (38-126) U/L Troponin I (0.000-0.034) ng/mL NT-Pro-B Natriuret Pep 60.0 (0-450) pg/mL Serum Total Protein 8.1 (6.3-8.2) g/dL Albumin 4.4 (3.5-5.0) g/dL Urine HCG, Qual (Negative) - Progress Progress: improved Air Movement: good Progress Note: 03/14/21 15:11 40 years old is evaluated for chest pain. EKG showed normal sinus rhythm with no acute ST elevations. Negative troponins x2 and negative D-dimers. Chest x- ray negative for any acute cardiopulmonary findings. She is given symptomatic treatment for pain, on reevaluation she is pain-free. I do not think patient needs further evaluation in the ER or needs to be admitted. I recommended outpatient follow-up with cardiology. Discussed signs symptoms of worsening needing return to ER which he seems understanding. Blood Culture(s) Obtained: No Antibiotics given: No Counseled pt/family regarding: lab results, diagnosis, need for follow-up, rad results - Departure Departure Disposition: Home Clinical Impression: Atypical chest pain Condition: Stable Critical Care Time: No Referrals: GALINA BRAN [Primary Care Provider] - (1-2 days for reevaluation) KAREN STARKEY MD [NON-STAFF PHY W/O PRIVILEGES] - (1-2 days for reevaluation) Instructions: Angina (DC), Chest Pain (DC) Additional Instructions: Take pain medications which you have at home as needed. Follow-up with primary care physician/cardiology for reevaluation. Return to ER for worsening pain, difficulty breathing etc.
[2021-03-14 10:59] LABS: Absolute Neutrophil Ct (ANC) 10.55 (1.4-6.9); BASOPHIL % 0.1 % (0.0-0.4); Basophil (Absolute #) 0.02 (0-0.4); Eosinophil % 0.1 % (0.00-5.0); Eosinophil (Absolute #) 0.01 (0-0.5); Hematocrit 42.7 % (35-47); Hemoglobin 14.3 gm/dl (12.0-16.0); Lymphocyte (Absolute #) 2.45 (1.0-4.6); Lymphocytes % 17.7 % (24.0-44.0); Mean Cell Volume 85.2 fl (78-100); Mean Corpuscular Hemoglobin 28.5 pg (26-32); Mean Corpuscular Hgb Concent. 33.5 g/dl (32-36); Mean Platelet Volume 10.2 fl (7.5-11.0); Monocytes % 5.8 % (0.0-12.0); Neutrophil % 76.3 % (36.0-66.0); Platelet Count 386 K/mm3 (150-450); Red Blood Count 5.01 M/mm3 (4.1-5.4); Red Cell Distribution Width 13.3 % (11.5-14.0); White Blood Count 13.8 K/mm3 (4.0-10.5)
[2021-03-14 11:11] LABS: ALBUMIN 4.4 g/dL (3.5-5.0); ALKALINE PHOSPHATASE 74 U/L (38-126); ANION GAP 14.2 MEQ/L (5-15); BLOOD UREA NITROGEN 8 mg/dL (7-17); CHLORIDE 109 mmol/L (98-107); Calcium 9.8 mg/dL (8.4-10.2); Carbon Dioxide 22 mmol/L (22-30); Creatinine 1 0.62 mg/dL (0.52-1.04); EST GLOMERULAR FILTRATION RATE > 60.0 ML/MIN; Glucose 106 mg/dL (74-106); Potassium 4.3 mmol/L (3.5-5.1); SGOT/AST 33 U/L (14-36); SGPT/ALT 20 U/L (0-35); SODIUM 141 mmol/L (137-145); Total Protein 8.1 g/dL (6.3-8.2)
[2021-03-14] MEDS ORDERED: TORAdol 30 mg Injection IV ONE (12:04)
[2021-03-14] MEDS ORDERED: TORAdol 30 mg Injection ONE (12:12)
[2021-03-14 14:08] VITALS: O2SAT 98
--- NOTE | 2021-03-14 15:02 | XRAY ---
Exam: AP upright portable chest film from 03/14/2021. Comparison: AP upright portable chest film from 02/02/2021. Indication: 40-year-old female with chest pain. Findings: The transverse heart size appears within normal limits. The patient is rotated slightly toward the right. Prior mild lobular left pericardial soft tissue masses seen on the chest CT study from 02/02/2021 are not evident on the current AP, portable chest radiograph. Correlate clinically as to whether a follow-up CT chest is needed at some point in time. The jyoti and mediastinal structures appear unremarkable on the current plain film radiograph. The lung fan are adequately inflated. No infiltrates, vascular congestion, pneumothorax, or pleural fluid is seen. No acute osseous process is seen. Impression: 1. No acute cardiopulmonary disease is seen, no change from the plain film from 02/02/2021. However, see above.
[2021-03-14 15:13] VITALS: BP 130/76; PULSE 55
[2021-03-14] MEDS ORDERED: Sodium Chloride 0.9% 1000 ML 0 ML ONE (18:56)
== END 2021-03-14 15:20 | disposition home or self-care (01) ==
LOC: ED 10:11
DX: R07.89 Other chest pain (principal)
CPT/HCPCS: 36000; 36415; 71045; 80053; 83880; 84484; 84703; 85025; 85379; 93005; 93041; 96374; 96375; 99284; J1885; J2270; J2405; A9270-GY

== ENCOUNTER 2022-04-03 03:46 | Emergency (ER) | payer OTHER ==
--- NOTE | 2022-04-03 03:57 | ERPHSYRPT ---
- History of Present Illness Time Seen by Provider: 04/03/22 03:57 Source: patient Exam Limitations: no limitations Physician History: This is a 41-year-old white female smoker who presents with sore throat that has worsened over the last 24 hours. She has associated mild cough and left earache. She has not been exposed to any individuals with similar symptoms or with individuals who have been diagnosed with viral illness or strep throat. Patient denies shortness of breath. She denies chest pain. He has no abdominal pain. She has no myalgias or arthralgias. Patient has a history of chronic back pain and hepatitis. Patient is a chronic daily smoker. Timing/Duration: gradual onset, yesterday Severity: mild (To moderate) ENT Location: throat Prearrival Treatment: no prearrival treatment Modifying Factors: Improves With: coughing Associated Symptoms: ear pain (L), cough, sore throat, No fever Allergies/Adverse Reactions: No Known Drug Allergies Allergy (Verified 04/03/22 03:51) Home Medications: Quetiapine Fumarate [Seroquel Xr] 1 tab PO BID 02/02/21 [History] Hx Tetanus, Diphtheria Vaccination/Date Given: Yes Hx Influenza Vaccination/Date Given: No Hx Pneumococcal Vaccination/Date Given: No Travel Risk - International Travel Have you traveled outside of the country in past 3 weeks: No - Coronavirus Screening Are you exhibiting any of the following symptoms?: No - Vaccine Status Have you recieved a Covid-19 vaccination: No - Review of Systems Constitutional: No Symptoms Eyes: No Symptoms Ears, Nose, & Throat: Ear Pain (Left), Throat Pain Respiratory: Cough Cardiac: No Symptoms Abdominal/Gastrointestinal: No Symptoms Genitourinary Symptoms: No Symptoms Musculoskeletal: No Symptoms Skin: No Symptoms Neurological: No Symptoms Psychological: No Symptoms Endocrine: No Symptoms Hematologic/Lymphatic: No Symptoms Immunological/Allergic: No Symptoms All Other Systems: Reviewed and Negative - Past Medical History Pertinent Past Medical History: Yes Neurological History: No Pertinent History ENT History: No Pertinent History Cardiac History: No Pertinent History Respiratory History: No Pertinent History Endocrine Medical History: No Pertinent History Musculoskeletal History: Arthritis GI Medical History: No Pertinent History History: No Pertinent History Psycho-Social History: No Pertinent History Female Reproductive Disorders: No Pertinent History Other Medical History: Chronic back pain, Hepatitis C, 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 - Past Surgical History Past Surgical History: Yes Gastrointestinal: Cholecystectomy Other Surgical History: Left knee, Back, gall bladder taken out - Social History Smoking Status: Current every day smoker How long have you smoked: 10 years Exposure to second hand smoke: Yes Alcohol Use: Socially Drug Use: marijuana Patient Lives Alone: No Significant Family History: no pertinent family hx - Nursing Vital Signs Nursing Vital Signs: Initial Vital Signs Temperature 98 F 04/03/22 03:52 Pulse Rate 74 04/03/22 03:52 Respiratory Rate 18 04/03/22 03:52 Blood Pressure 156/78 04/03/22 03:52 O2 Sat by Pulse Oximetry 97 04/03/22 03:52 Pain Scale Pain Intensity 6 - Physical Exam General Appearance: no apparent distress, alert, anxiety Eye Exam: bilateral eye: normal inspection, PERRL, EOMI Ear Exam: bilateral ear: auricle normal, canal normal, TM normal Nasal Exam: normal inspection Throat Exam: moist mucus membranes, pharynx swelling, pharynx tenderness Neck Exam: normal inspection, non-tender, supple, full range of motion Cardiovascular/Respiratory Exam: chest non-tender, no respiratory distress Abdominal Exam: non-tender Neurologic Exam: alert, oriented x 3, cooperative, principle software engineer II-XII nml as tested, normal mood/affect, nml cerebellar function, nml station & gait, sensation nml Skin Exam: normal color, warm, dry SpO2 Interpretation: normal - Course Nursing assessment & vital signs reviewed: Yes Ordered Tests: Medication Summary Discontinued Medications Generic Name Dose Route Start Last Admin Trade Name Freq PRN Reason Stop Dose Admin Hydrocodone Bitart/Acetaminophen 10 ml 04/03/22 04:13 Hydrocodone/Acetaminophen 5 Ml Udcup PO 04/03/22 04:14 STAT STA Prednisone 20 mg 04/03/22 04:13 04/03/22 04:21 Prednisone 20 Mg Tablet PO 04/03/22 04:14 20 mg STAT ONE Administration Prednisone Confirm 04/03/22 04:20 Prednisone 20 Mg Tablet Administered 04/03/22 04:21 Dose 20 mg .ROUTE .STK-MED ONE Lab/Rad Data: Laboratory Results 04/03/22 04/03/22 Range/Units 04:28 04:28 Influenza Type A Ag NEGATIVE (NEGATIVE) Influenza Type B Ag NEGATIVE (NEGATIVE) RSV (PCR) NEGATIVE (Negative) SARS-CoV-2 (PCR) NEGATIVE (NEGATIVE) Group A Strep Antibody NOT DETECTED (NEGATIVE) - Departure Departure Disposition: Home Clinical Impression: Pharyngitis Condition: Stable Critical Care Time: No Referrals: GALINA BRAN [Primary Care Provider] - Follow up/PCP as directed Additional Instructions: Drink plenty of cool liquids. Stop smoking while your throat is sore. Follow- up with your primary care physician for further evaluation and management. Forms: Work/School Release Form Prescriptions: Prednisone 10 mg [Deltasone 10 mg] 10 mg PO TID #12 tablet
[2022-04-03] MEDS ORDERED: DELTASONE 20 MG ONE (04:20)
[2022-04-03] MEDS: DELTASONE 20 MG PO ONE (04:21)
[2022-04-03 05:07] LABS: INFLUENZA A NEGATIVE (NEGATIVE); INFLUENZA B NEGATIVE (NEGATIVE); RESPIRATORY SYNCTIAL VIRUS NEGATIVE (Negative); SARS-CoV-2 Xpert Express NEGATIVE (NEGATIVE)
[2022-04-03] MEDS ORDERED: HYDROCODONE-ACETAMIN 2.5-108/5 ML SOLUTION ONE (05:12)
[2022-04-03] MEDS: HYDROCODONE-ACETAMIN 2.5-108/5 ML SOLUTION PO STA (05:13)
[2022-04-03 05:20] VITALS: BP 122/81; PULSE 80; O2SAT 100
== END 2022-04-03 05:21 | disposition home or self-care (01) ==
LOC: ED 03:46
DX: J02.9 Acute pharyngitis, unspecified (principal); R05.9 Cough, unspecified; H92.02 Otalgia, left ear; Z72.0 Tobacco use; Z79.52 Long term (current) use of systemic steroids; Z79.899 Other long term (current) drug therapy
CPT/HCPCS: 0241U; 87651; 99283; A9270-GY

== ENCOUNTER 2022-07-08 20:12 | Emergency (ER) | payer OTHER ==
[2022-07-08 20:32] VITALS: BP 122/82; PULSE 85
--- NOTE | 2022-07-08 20:35 | ERPHSYRPT ---
- History of Present Illness Time Seen by Provider: 07/08/22 20:30 Source: patient Exam Limitations: no limitations Physician History: Patient is a 41-year-old white female who has recurrent acne-like lesions on the face. She was seen by her PCP on the and given clindamycin ointment and Valtrex she has a [employer] Kalosis on the right side of the mouth. She has no systemic diseases like diabetes etc. Timing/Duration: day(s) (5) Quality: painful Severity: moderate Location: face Possible Causes: no cause identified Allergies/Adverse Reactions: No Known Drug Allergies Allergy (Verified 07/08/22 20:22) Home Medications: Quetiapine Fumarate [Seroquel Xr] 1 tab PO BID 02/02/21 [History] Hx Tetanus, Diphtheria Vaccination/Date Given: Yes Hx Influenza Vaccination/Date Given: No Hx Pneumococcal Vaccination/Date Given: No Travel Risk - Vaccine Status Have you recieved a Covid-19 vaccination: No - Review of Systems Constitutional: No Fever, No Chills Eyes: No Symptoms Ears, Nose, & Throat: No Symptoms, Mouth Pain Respiratory: No Cough, No Dyspnea Cardiac: No Chest Pain, No Edema, No Syncope Abdominal/Gastrointestinal: No Abdominal Pain, No Nausea, No Vomiting, No Diarrhea Genitourinary Symptoms: No Dysuria Musculoskeletal: No Back Pain, No Neck Pain Skin: Rash Neurological: No Dizziness, No Focal Weakness, No Sensory Changes Psychological: No Symptoms Endocrine: No Symptoms All Other Systems: Reviewed and Negative - Past Medical History Pertinent Past Medical History: Yes Neurological History: No Pertinent History ENT History: No Pertinent History Cardiac History: No Pertinent History Respiratory History: No Pertinent History Endocrine Medical History: No Pertinent History Musculoskeletal History: Arthritis GI Medical History: No Pertinent History History: No Pertinent History Psycho-Social History: No Pertinent History Female Reproductive Disorders: No Pertinent History Other Medical History: Chronic back pain, Hepatitis C, 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 - Past Surgical History Past Surgical History: Yes Neuro Surgical History: No Pertinent History Cardiac: No Pertinent History Respiratory: No Pertinent History Gastrointestinal: Cholecystectomy Genitourinary: No Pertinent History Musculoskeletal: No Pertinent History Female Surgical History: No Pertinent History Other Surgical History: Left knee, Back, gall bladder taken out - Social History Smoking Status: Current every day smoker How long have you smoked: 10 years Exposure to second hand smoke: Yes Alcohol Use: Socially Drug Use: marijuana Patient Lives Alone: No Significant Family History: no pertinent family hx - Physical Exam General Appearance: no apparent distress, alert Eye Exam: PERRL/EOMI, eyes nml inspection Ears, Nose, Throat Exam: normal ENT inspection, pharynx normal, moist mucous membranes, other (Patient has cheilosis and acne) Neck Exam: normal inspection, non-tender, supple, full range of motion Respiratory Exam: normal breath sounds, lungs clear, No respiratory distress Cardiovascular Exam: regular rate/rhythm, normal heart sounds Gastrointestinal/Abdomen Exam: soft, mass, No tenderness Back Exam: normal inspection, normal range of motion, No CVA tenderness, No vertebral tenderness Extremity Exam: normal inspection, normal range of motion Neurologic Exam: alert, oriented x 3, cooperative, normal mood/affect, sensation nml, No motor deficits Skin Exam: normal color, warm, dry - Course Nursing assessment & vital signs reviewed: Yes - Progress Progress: unchanged - Departure Departure Disposition: Home Clinical Impression: Cheilosis, Acne Condition: Stable Critical Care Time: No Referrals: GALINA BRAN [Primary Care Provider] - Follow up/PCP as directed Instructions: Skin Rash (DC) Prescriptions: clindamycin HCL [Cleocin HCl] 300 mg PO TID 10 Days #30 cap
[2022-07-08 20:38] VITALS: O2SAT 96
== END 2022-07-08 20:47 | disposition home or self-care (01) ==
LOC: ED 20:12
DX: K13.0 Diseases of lips (principal); L70.9 Acne, unspecified; Z72.0 Tobacco use; Z79.899 Other long term (current) drug therapy; Z28.310 Unvaccinated for COVID-19
CPT/HCPCS: 99281

== ENCOUNTER 2022-10-21 05:38 | Emergency (ER) | payer OTHER ==
[2022-10-21] MEDS ORDERED: Augmentin 875-125 Tablet PO ONE (06:44)
[2022-10-21] MEDS ORDERED: TORAdol 30 mg Injection IM ONE (06:46)
[2022-10-21] MEDS ORDERED: Augmentin 875-125 Tablet ONE (06:47)
--- NOTE | 2022-10-21 06:48 | ERPHSYRPT ---
- History of Present Illness Time Seen by Provider: 10/21/22 06:42 Source: patient Exam Limitations: no limitations Patient Subjective Stated Complaint: sore throat and left ear pain Triage Nursing Assessment: pt ambulated into ER without diff. Pt alert and oriented x3. Pt c/o sore throat and left ear pain since yesterday. Pt is about 10 days post op covid +. Pt's left ear does not appear red. Physician History: 42 years old male presented in the ER with chief complaint of sore throat and left earache moderate intensity without any significant aggravating or relieving factors. Denies any ear discharge. Subjective feeling of fever and chills. Timing/Duration: gradual onset, days Severity: moderate ENT Location: ear (L), throat Prearrival Treatment: over the counter meds Associated Symptoms: ear pain (L), sore throat, No cough, No fever, No chills Allergies/Adverse Reactions: No Known Drug Allergies Allergy (Verified 10/21/22 05:55) Home Medications: Desvenlafaxine [Desvenlafaxine ER] 1 ea DAILY 10/23/22 [History] Dextroamphetamine/Amphetamine [Adderall Xr 30 mg Capsule] 1 ea DAILY 10/23/22 [History] Quetiapine Fumarate [Seroquel] 50 mg PO DAILY 10/23/22 [History] Hx Tetanus, Diphtheria Vaccination/Date Given: Yes Hx Influenza Vaccination/Date Given: No Hx Pneumococcal Vaccination/Date Given: No Immunizations Up to Date: Yes Travel Risk - International Travel Have you traveled outside of the country in past 3 weeks: No - Coronavirus Screening Are you exhibiting any of the following symptoms?: No Close contact with a COVID-19 positive Pt in past 14-21 Days: Yes - Vaccine Status Have you recieved a Covid-19 vaccination: No - Review of Systems Constitutional: No Symptoms Eyes: No Symptoms Ears, Nose, & Throat: Nose Congestion, Throat Pain, Throat Swelling Respiratory: Cough Cardiac: No Symptoms Abdominal/Gastrointestinal: No Symptoms Genitourinary Symptoms: No Symptoms Musculoskeletal: No Symptoms Neurological: No Symptoms Endocrine: No Symptoms Hematologic/Lymphatic: No Symptoms - Past Medical History Pertinent Past Medical History: Yes Neurological History: No Pertinent History ENT History: No Pertinent History Cardiac History: No Pertinent History Respiratory History: No Pertinent History Endocrine Medical History: No Pertinent History Musculoskeletal History: Arthritis GI Medical History: Gallbladder Disease History: No Pertinent History Psycho-Social History: Depression Female Reproductive Disorders: No Pertinent History Other Medical History: Chronic back pain, Hepatitis C, 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 - Past Surgical History Past Surgical History: Yes Neuro Surgical History: No Pertinent History Cardiac: No Pertinent History Respiratory: No Pertinent History Gastrointestinal: Cholecystectomy Genitourinary: No Pertinent History Musculoskeletal: No Pertinent History Female Surgical History: No Pertinent History Other Surgical History: Left knee, Back, gall bladder taken out - Social History Smoking Status: Former smoker How long have you smoked: 20 yrs Exposure to second hand smoke: Yes Alcohol Use: Socially Drug Use: marijuana Patient Lives Alone: No Significant Family History: no pertinent family hx - Female History Hx Now: No - Nursing Vital Signs Nursing Vital Signs: Initial Vital Signs Temperature 97.8 F 10/21/22 05:46 Pulse Rate 92 H 10/21/22 05:46 Respiratory Rate 17 10/21/22 05:46 Blood Pressure 130/95 10/21/22 05:46 O2 Sat by Pulse Oximetry 98 10/21/22 05:46 Pain Scale Pain Intensity 6 - Physical Exam General Appearance: no apparent distress, alert Eye Exam: bilateral eye: normal inspection, PERRL, EOMI Ear Exam: right ear: TM normal, left ear: erythema, bilateral ear: auricle normal, canal normal Nasal Exam: normal inspection Throat Exam: moist mucus membranes, pharynx swelling, pharynx tenderness Neck Exam: normal inspection, non-tender, supple, full range of motion Cardiovascular/Respiratory Exam: chest non-tender, normal breath sounds Neurologic Exam: alert, oriented x 3, cooperative, asset specialist II-XII nml as tested Skin Exam: normal color SpO2 Interpretation: normal SpO2: 96 O2 Delivery: Room Air Ordered Tests: Medication Summary Discontinued Medications Generic Name Dose Route Start Last Admin Trade Name Freq PRN Reason Stop Dose Admin Amoxicillin/Clavulanate Potassium 875 mg 10/21/22 06:44 10/21/22 06:48 Amox Tr/Potassium Clavulanate 875 Mg Tablet PO 10/21/22 06:45 875 mg STAT ONE Administration Amoxicillin/Clavulanate Potassium Confirm 10/21/22 06:47 Amox Tr/Potassium Clavulanate 875 Mg Tablet Administered 10/21/22 06:48 Dose 875 mg .ROUTE .STK-MED ONE Ketorolac Tromethamine 30 mg 10/21/22 06:46 10/21/22 06:54 Ketorolac Tromethamine 30 Mg/Ml Inj IM 10/21/22 06:47 Not Given STAT ONE Ketorolac Tromethamine Confirm 10/21/22 06:51 Ketorolac Tromethamine 30 Mg/Ml Inj Administered 10/21/22 06:52 Dose 30 mg .ROUTE .STK-MED ONE Lab/Rad Data: Laboratory Results 10/21/22 10/21/22 Range/Units 06:07 06:07 Influenza Type A Ag NEGATIVE (NEGATIVE) Influenza Type B Ag NEGATIVE (NEGATIVE) RSV (PCR) NEGATIVE (Negative) SARS-CoV-2 (PCR) NEGATIVE (NEGATIVE) Group A Strep Antibody NOT DETECTED (NEGATIVE) - Progress Progress: unchanged Progress Note: 10/21/22 06:46 Given Toradol for symptomatic relief and started on Augmentin. Outpatient follow-up. Counseled pt/family regarding: diagnosis, need for follow-up - Departure Departure Disposition: Home Clinical Impression: Otitis media, Acute pharyngitis Condition: Stable Critical Care Time: No Referrals: GALINA BRAN [Primary Care Provider] - Follow Up with PCP/3 days Instructions: Sore Throat, Adult (DC) Additional Instructions: Take Tylenol/ibuprofen as needed. Follow-up with primary care for reevaluation. Return for any worsening.
[2022-10-21 06:49] LABS: INFLUENZA A NEGATIVE (NEGATIVE); INFLUENZA B NEGATIVE (NEGATIVE); RESPIRATORY SYNCTIAL VIRUS NEGATIVE (Negative); SARS-CoV-2 Xpert Express NEGATIVE (NEGATIVE)
[2022-10-21] MEDS ORDERED: TORAdol 30 mg Injection ONE (06:51)
[2022-10-21 07:08] VITALS: BP 108/83; PULSE 80
[2022-10-26 23:29] VITALS: O2SAT 96
== END 2022-10-21 07:08 | disposition home or self-care (01) ==
LOC: ED 05:38
DX: H66.92 Otitis media, unspecified, left ear (principal); J02.9 Acute pharyngitis, unspecified; Z79.899 Other long term (current) drug therapy; Z28.310 Unvaccinated for COVID-19
CPT/HCPCS: 0241U; 87651; 99282; J1885; A9270-GY

== ENCOUNTER 2022-10-23 16:33 | Emergency (ER) | payer OTHER ==
[2022-10-23 16:49] VITALS: BP 120/72; PULSE 101; O2SAT 97
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
== END 2022-10-23 19:00 | disposition home or self-care (01) ==
LOC: ED 16:33
DX: S63.502A Unspecified sprain of left wrist, initial encounter (principal); V48.5XXA Car driver injured in noncollision transport accident in traffic accident, initial encounter; Z79.899 Other long term (current) drug therapy; Z28.310 Unvaccinated for COVID-19; Z72.0 Tobacco use
CPT/HCPCS: 73110; 73130; 99282; A4570

== ENCOUNTER 2022-11-23 13:40 | Emergency (ER) | payer OTHER ==
[2022-11-23 13:49] VITALS: BP 131/82; PULSE 100; O2SAT 100
--- NOTE | 2022-11-23 14:42 | ERPHSYRPT ---
- History of Present Illness Time Seen by Provider: 11/23/22 13:48 Source: patient Exam Limitations: no limitations Patient Subjective Stated Complaint: pt here for open areas to right shoulder for a couple days, she is currently takin antiboics for open areas to left arms, no fever Triage Nursing Assessment: pt alert, resp easy, skin w/d/p, has multi open and scabed wounds to both arms pt states is from her job, she states left arm is a burning pain Physician History: 42-year-old female with a history of anxiety depression presented in the ER with chief complaint of sore skin area on the right deltoid for last couple of days. Patient was seen at [facility] for same kind of areas on the left shoulder for which she is on doxycycline and topical Bactroban. Complaining of moderate pain with movements of right shoulder and soreness of upper arm. No fever or chills reported. 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 Has a remote history of IV drug use but denies using anything currently and has been sober for quite some time. Timing/Duration: day(s) (2), gradual onset, worse Quality: burning, itchy, painful Severity: mild, moderate Location: extremities Possible Causes: no cause identified Associated Symptoms: rash Allergies/Adverse Reactions: No Known Drug Allergies Allergy (Verified 11/23/22 13:45) Home Medications: Desvenlafaxine [Desvenlafaxine ER] 1 ea DAILY 10/23/22 [History] Dextroamphetamine/Amphetamine [Adderall Xr 30 mg Capsule] 1 ea DAILY 10/23/22 [History] Quetiapine Fumarate [Seroquel] 50 mg PO DAILY 10/23/22 [History] Doxycycline Hyclate 100 mg [Vibramycin 100 MG] 100 mg PO BID 11/23/22 [History] Mupirocin [Bactroban OINTMENT] 15 gm TP TID 11/23/22 [History] Hx Tetanus, Diphtheria Vaccination/Date Given: Yes Hx Influenza Vaccination/Date Given: No Hx Pneumococcal Vaccination/Date Given: No Immunizations Up to Date: Yes Travel Risk - International Travel Have you traveled outside of the country in past 3 weeks: No - Coronavirus Screening Are you exhibiting any of the following symptoms?: No Close contact with a COVID-19 positive Pt in past 14-21 Days: No - Vaccine Status Have you recieved a Covid-19 vaccination: No - Review of Systems Constitutional: No Symptoms Ears, Nose, & Throat: No Symptoms Respiratory: No Symptoms Cardiac: No Symptoms Abdominal/Gastrointestinal: No Symptoms Genitourinary Symptoms: No Symptoms Skin: Induration, Rash, Skin Lesions Neurological: No Symptoms Psychological: No Symptoms Hematologic/Lymphatic: No Symptoms Immunological/Allergic: No Symptoms - Past Medical History Pertinent Past Medical History: Yes Neurological History: No Pertinent History ENT History: No Pertinent History Cardiac History: No Pertinent History Respiratory History: No Pertinent History Endocrine Medical History: No Pertinent History Musculoskeletal History: Arthritis GI Medical History: Gallbladder Disease History: No Pertinent History Psycho-Social History: Depression Female Reproductive Disorders: No Pertinent History Other Medical History: Chronic back pain, Hepatitis C, 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 - Past Surgical History Past Surgical History: Yes Neuro Surgical History: No Pertinent History Cardiac: No Pertinent History Respiratory: No Pertinent History Gastrointestinal: Cholecystectomy Genitourinary: No Pertinent History Musculoskeletal: No Pertinent History Female Surgical History: No Pertinent History Other Surgical History: Left knee, Back, gall bladder taken out - Social History Smoking Status: Current every day smoker How long have you smoked: 20 yrs Exposure to second hand smoke: Yes Alcohol Use: Socially Drug Use: marijuana Patient Lives Alone: No Significant Family History: no pertinent family hx - Female History Hx Last Menstrual Period: oct Hx Now: No - Nursing Vital Signs Nursing Vital Signs: Initial Vital Signs Temperature 98 F 11/23/22 13:47 Pulse Rate 100 H 11/23/22 13:47 Respiratory Rate 16 11/23/22 13:47 Blood Pressure 131/82 11/23/22 13:47 O2 Sat by Pulse Oximetry 100 11/23/22 13:47 Pain Scale Pain Intensity 4 - Physical Exam General Appearance: no apparent distress, alert Eye Exam: PERRL/EOMI Neck Exam: normal inspection, supple, full range of motion Respiratory Exam: normal breath sounds, lungs clear Cardiovascular Exam: regular rate/rhythm, normal heart sounds Extremity Exam: other (Multiple skin lesions and hand/forearm bilaterally scabbed. No signs of cellulitis. Has partially scabbed area right upper deltoid with minimal erythema around. Mild to moderate tenderness to palpation. No vesicles around.) Neurologic Exam: alert, oriented x 3, cooperative Skin Exam: normal color SpO2 Interpretation: normal SpO2: 100 O2 Delivery: Room Air - Progress Progress: unchanged Progress Note: 11/23/22 14:40 42 years old who was treated for staph infection left deltoid area and now having similar kind of rash on the right side. She has been taking doxycycline for the last 3 days. This new rash appeared 2 days ago. Minimal tenderness around and has partially scabbed. Do not see any vesicles that make me suspicious for herpes. Patient denies using drug use and she seems pretty appropriate for that. Has no fever and not in any distress. I would continue with doxycycline and have her outpatient follow-up after completing course of antibiotics. Discussed signs symptoms of worsening needing return to ER which she seems understanding. Stable for discharge. Counseled pt/family regarding: diagnosis, need for follow-up - Departure Departure Disposition: Home Clinical Impression: Skin infection Condition: Stable Critical Care Time: No Referrals: GALINA BRAN [Primary Care Provider] - Follow Up with PCP/3 days Instructions: MRSA (DC) Additional Instructions: Continue with current antibiotics. Take Tylenol/ibuprofen as needed. Follow-up with primary care for reevaluation. Return to ER for increasing pain, swelling, redness, difficulty movements of arm, fever chills etc.
== END 2022-11-23 14:56 | disposition home or self-care (01) ==
LOC: ED 13:40
DX: L08.9 Local infection of the skin and subcutaneous tissue, unspecified (principal); Z79.899 Other long term (current) drug therapy; Z28.310 Unvaccinated for COVID-19; Z72.0 Tobacco use
CPT/HCPCS: 99281

== ENCOUNTER 2023-03-18 18:29 | Emergency (ER) | payer BC, OTHER ==
[2023-03-18] MEDS ORDERED: TORAdol 30 mg Injection IV ONE (18:56)
[2023-03-18] MEDS ORDERED: Compazine 10 MG/2 ML IV ONE (18:56)
[2023-03-18] MEDS ORDERED: Sodium Chloride 0.9% 1000 ML 1,000 ML IV STA ×2 (18:57→20:37)
[2023-03-18] MEDS ORDERED: BENADRYL 50 MG/ML IV ONE (18:57)
--- NOTE | 2023-03-18 18:58 | ERPHSYRPT ---
- History of Present Illness Time Seen by Provider: 03/18/23 18:54 Exam Limitations: no limitations Patient Subjective Stated Complaint: EMS states "She lives in a tent and when we picked her up she said that her chest was tight and she was dizzy.". PT stated "I have a horrible headache and I am dizzy when I move my head. My chest was tight but it is easing up." Triage Nursing Assessment: Pt presented alert and oriented X 3, skin pwd. Pt ambulates with a slow gait, able to speak in clear full sentences. Pt holding her head and crying. PT unable to sit still. Physician History: Patient is a 42-year-old female presents to our ED for evaluation of chest tightness dizziness and a headache. Symptoms started 2 days ago after smoking marijuana that she thought was bad. Patient states that did not taste normally. Patient later began to experience diffuse body aches. Patient symptoms are mild to moderate in intensity. No specific worsening improving factors. Patient's dizziness is worse when she moves her head. No associated vomiting however patient is nauseous. No diarrhea. Patient voices no other complaints or concerns at this time. Portions of this note were created with voice recognition technology. There may be grammatical, spelling, punctuation or sound alike errors Timing/Duration: day(s) Severity: moderate Modifying Factors: Improves With: nothing Associated Symptoms: denies symptoms Allergies/Adverse Reactions: No Known Drug Allergies Allergy (Verified 11/23/22 13:45) Home Medications: Desvenlafaxine [Desvenlafaxine ER] 1 ea DAILY 10/23/22 [History] Dextroamphetamine/Amphetamine [Adderall Xr 30 mg Capsule] 1 ea DAILY 10/23/22 [History] Quetiapine Fumarate [Seroquel] 50 mg PO DAILY 10/23/22 [History] Hx Tetanus, Diphtheria Vaccination/Date Given: Yes Hx Influenza Vaccination/Date Given: No Hx Pneumococcal Vaccination/Date Given: No Travel Risk - International Travel Have you traveled outside of the country in past 3 weeks: No - Coronavirus Screening Are you exhibiting any of the following symptoms?: Yes Symptoms: Headaches/Body Aches/Fatigue Close contact with a COVID-19 positive Pt in past 14-21 Days: No - Vaccine Status Have you recieved a Covid-19 vaccination: No - Review of Systems Constitutional: No Symptoms, No Fever, No Chills Eyes: No Symptoms Ears, Nose, & Throat: No Symptoms Respiratory: No Symptoms, No Cough, No Dyspnea Cardiac: No Symptoms, No Chest Pain, No Edema, No Syncope Abdominal/Gastrointestinal: No Symptoms, No Abdominal Pain, No Nausea, No Vomiting, No Diarrhea Genitourinary Symptoms: No Symptoms, No Dysuria Musculoskeletal: No Symptoms, No Back Pain, No Neck Pain Skin: No Symptoms, No Rash Neurological: No Symptoms, No Dizziness, No Focal Weakness, No Sensory Changes Psychological: No Symptoms Endocrine: No Symptoms Hematologic/Lymphatic: No Symptoms Immunological/Allergic: No Symptoms All Other Systems: Reviewed and Negative - Past Medical History Pertinent Past Medical History: Yes Neurological History: No Pertinent History ENT History: No Pertinent History Cardiac History: No Pertinent History Respiratory History: No Pertinent History Endocrine Medical History: No Pertinent History Musculoskeletal History: Arthritis GI Medical History: Gallbladder Disease History: No Pertinent History Psycho-Social History: Depression Female Reproductive Disorders: No Pertinent History Other Medical History: Chronic back pain, Hepatitis C, 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 - Past Surgical History Past Surgical History: Yes Neuro Surgical History: No Pertinent History Cardiac: No Pertinent History Respiratory: No Pertinent History Gastrointestinal: Cholecystectomy Genitourinary: No Pertinent History Musculoskeletal: No Pertinent History Female Surgical History: No Pertinent History Other Surgical History: Left knee, Back, gall bladder taken out - Social History Smoking Status: Current every day smoker How long have you smoked: 20 yrs Exposure to second hand smoke: Yes Alcohol Use: Socially Drug Use: marijuana Patient Lives Alone: No Significant Family History: no pertinent family hx - Female History Hx Last Menstrual Period: 03/18/2023 Hx Now: No - Nursing Vital Signs Nursing Vital Signs: Initial Vital Signs Temperature 97.5 F 03/18/23 18:31 Pulse Rate 93 H 03/18/23 18:31 Respiratory Rate 24 03/18/23 18:31 Blood Pressure 129/81 03/18/23 18:31 O2 Sat by Pulse Oximetry 100 03/18/23 18:31 Pain Scale Pain Intensity 0 - Physical Exam General Appearance: no apparent distress, alert Eye Exam: PERRL/EOMI, eyes nml inspection Ears, Nose, Throat Exam: normal ENT inspection, TMs normal, pharynx normal, moist mucous membranes Neck Exam: normal inspection, non-tender, supple, full range of motion Respiratory Exam: normal breath sounds, lungs clear, airway intact, No respiratory distress Cardiovascular Exam: regular rate/rhythm, normal heart sounds, normal peripheral pulses Gastrointestinal/Abdomen Exam: soft, normal bowel sounds, No tenderness, No mass Back Exam: normal inspection, normal range of motion, No CVA tenderness, No vertebral tenderness Extremity Exam: normal inspection, normal range of motion, pelvis stable Neurologic Exam: alert, oriented x 3, cooperative, normal mood/affect, nml cerebellar function, nml station & gait, sensation nml, No motor deficits Skin Exam: normal color, warm, dry, No rash Lymphatic Exam: No adenopathy SpO2 Interpretation: normal SpO2: 95 O2 Delivery: Room Air - Course Nursing assessment & vital signs reviewed: Yes EKG Interpreted by Me: RATE (91), Sinus Rhythm, NORMAL AXIS, NORMAL INTERVALS - Radiology Exams Chest X-ray Interpretation: Teleradiologist Report (Normal heart lungs and bony thorax. No acute findings.) Ordered Tests: Active Orders 24 hr Category Date Time Status Inspector [employer] STAT Care 03/18/23 18:50 Active EKG-ER Only STAT Care 03/18/23 18:48 Active IV Insertion STAT Care 03/18/23 18:48 Active Pulse Oximetry (ED) STAT Care 03/18/23 18:48 Active CHEST 1 VIEW (PORTABLE) Stat Exams 03/18/23 18:49 Completed CBC W DIFF Stat Lab 03/18/23 19:05 Completed CMP Stat Lab 03/18/23 19:05 Completed CULTURE,URINE Stat Lab 03/18/23 22:27 Received ETHYL ALCOHOL Stat Lab 03/18/23 19:05 Completed MAGNESIUM Stat Lab 03/18/23 19:05 Completed NT PRO BNPII Stat Lab 03/18/23 19:05 Completed TROPONIN Q4H Lab 03/18/23 19:05 Completed TROPONIN Q4H Lab 03/18/23 23:35 Completed TROPONIN Q4H Lab 03/19/23 03:00 Ordered UA W/RFX UR CULTURE Stat Lab 03/18/23 22:27 Completed Urine Triage Profile Stat Lab 03/18/23 22:27 Completed Medication Summary Generic Name Dose Route Start Last Admin Trade Name Freq PRN Reason Stop Dose Admin Magnesium Sulfate/Dextrose 100 mls @ 100 mls/hr 03/18/23 20:45 03/18/23 21:39 Magnesium 1 Gm / 100 Ml D5w IV 03/18/23 22:44 100 mls/hr Q1H CRISTOPHER Administration Discontinued Medications Generic Name Dose Route Start Last Admin Trade Name Galo PRN Reason Stop Dose Admin Diphenhydramine HCl 25 mg 03/18/23 18:57 03/18/23 19:13 Diphenhydramine Hcl 50 Mg/Ml Vial IV 03/18/23 18:58 25 mg STAT ONE Administration Diphenhydramine HCl Confirm 03/18/23 19:13 Diphenhydramine Hcl 50 Mg/Ml Vial Administered 03/18/23 19:14 Dose 50 mg .ROUTE .STK-MED ONE Sodium Chloride 1,000 mls @ 999 mls/hr 03/18/23 18:57 03/18/23 20:34 Sodium Chloride 0.9% 1000 Ml IV 03/18/23 19:57 Infused .Q1H1M STA Infusion Sodium Chloride Confirm 03/18/23 18:59 Sodium Chloride 0.9% 1000 Ml Administered 03/18/23 19:00 Dose 1,000 mls @ ud .ROUTE .STK-MED ONE Sodium Chloride 1,000 mls @ 999 mls/hr 03/18/23 20:37 03/18/23 22:22 Sodium Chloride 0.9% 1000 Ml IV 03/18/23 21:37 Infused .Q1H1M STA Infusion Sodium Chloride Confirm 03/18/23 20:59 Sodium Chloride 0.9% 1000 Ml Administered 03/18/23 21:00 Dose 1,000 mls @ ud .ROUTE .STK-MED ONE Ketorolac Tromethamine 30 mg 03/18/23 18:56 03/18/23 19:08 Ketorolac Tromethamine 30 Mg/Ml Inj IV 03/18/23 18:57 30 mg STAT ONE Administration Ketorolac Tromethamine Confirm 03/18/23 18:59 Ketorolac Tromethamine 30 Mg/Ml Inj Administered 03/18/23 19:00 Dose 30 mg .ROUTE .STK-MED ONE Potassium Chloride 40 meq 03/18/23 20:36 03/18/23 21:00 Potassium Chloride Tab 10 Meq Tab PO 03/18/23 20:37 40 meq STAT ONE Administration Potassium Chloride Confirm 03/18/23 20:58 Potassium Chloride Tab 10 Meq Tab Administered 03/18/23 20:59 Dose 40 meq PO .STK-MED ONE Prochlorperazine Edisylate 10 mg 03/18/23 18:56 03/18/23 19:10 Prochlorperazine Edisylate 10 Mg/2 Ml Vial IV 03/18/23 18:57 10 mg STAT ONE Administration Prochlorperazine Edisylate Confirm 03/18/23 18:59 Prochlorperazine Edisylate 10 Mg/2 Ml Vial Administered 03/18/23 19:00 Dose 10 mg .ROUTE .STK-MED ONE Lab/Rad Data: Laboratory Result Diagrams 03/18/23 19:05 03/18/23 19:05 Laboratory Results 03/18/23 03/18/23 03/18/23 Range/Units 23:35 22:27 22:27 WBC (4.0-10.5) x10^3/uL RBC (4.1-5.4) x10^6/uL Hgb (12.0-16.0) g/dL Hct (35-47) % MCV (78-100) fL MCH (26-32) pg MCHC (32-36) g/dL RDW (11.5-14.0) % Plt Count (150-450) x10^3/uL MPV (7.5-11.0) fL Gran % (36.0-66.0) % Immature Gran % (Auto) (0.00-0.4) % Nucleat RBC Rel Count (0.00-0.1) % Eos # (Auto) (0-0.5) x10^3/uL Immature Gran # (Auto) (0.00-0.03) x10^3u/L Absolute Lymphs (auto) (1.0-4.6) x10^3/uL Absolute Monos (auto) (0.0-1.3) x10^3/uL Absolute Nucleated RBC (0.00-0.01) x10^3u/L Lymphocytes % (24.0-44.0) % Monocytes % (0.0-12.0) % Eosinophils % (0.00-5.0) % Basophils % (0.0-0.4) % Absolute Granulocytes (1.4-6.9) x10^3/uL Basophils # (0-0.4) x10^3/uL Sodium (137-145) mmol/L Potassium (3.5-5.1) mmol/L Chloride (98-107) mmol/L Carbon Dioxide (22-30) mmol/L Anion Gap (5-15) MEQ/L BUN (7-17) mg/dL Creatinine (0.52-1.04) mg/dL Estimated GFR ML/MIN Glucose (74-106) mg/dL Calcium (8.4-10.2) mg/dL Magnesium (1.6-2.3) mg/dL Total Bilirubin (0.2-1.3) mg/dL AST (14-36) U/L ALT (0-35) U/L Alkaline Phosphatase (38-126) U/L Troponin I < 0.012 (0.000-0.034) ng/mL NT-Pro-B Natriuret Pep (<300) pg/mL Serum Total Protein (6.3-8.2) g/dL Albumin (3.5-5.0) g/dL Urine Color Yellow (Yellow) Urine Appearance Clear (Clear) Urine pH 5.5 (4.6-8.0) Ur Specific [place] 1.010 (1.005-1.030) Urine Protein Negative (Negative) Urine Glucose (UA) Negative (Negative) mg/dL Urine Ketones Negative (Negative) Urine Blood Large A (Negative) Urine Nitrite Negative (Negative) Urine Bilirubin Negative (Negative) Urine Urobilinogen 1.0 A (0.2) mg/dL Ur Leukocyte Esterase Trace A (Negative) U Hyaline Cast (Auto) NONE SEEN (0-2) /LPF Urine Microscopic RBC >100 A (0-5) /HPF Urine Microscopic WBC 0-2 (0-5) /HPF Ur Epithelial Cells None Seen (None Seen) /HPF Urine Bacteria None Seen (None Seen) /HPF Urine Culture Reflexed YES (NO) Urine Opiates Level NEGATIVE (NEGATIVE) Ur Methadone NEGATIVE (NEGATIVE) Urine Barbiturates NEGATIVE (NEGATIVE) Ur Phencyclidine (PCP) NEGATIVE (NEGATIVE) Urine Amphetamine POSITIVE (NEGATIVE) U Benzodiazepine Level NEGATIVE (NEGATIVE) Urine Cocaine NEGATIVE (NEGATIVE) Urine Marijuana (THC) POSITIVE (NEGATIVE) Ethyl Alcohol (0-10) mg/dL Influenza Type A Ag (NEGATIVE) Influenza Type B Ag (NEGATIVE) RSV (PCR) (NEGATIVE) SARS-CoV-2 (PCR) (NEGATIVE) 03/18/23 03/18/23 03/18/23 Range/Units 19:10 19:05 19:05 WBC (4.0-10.5) x10^3/uL RBC (4.1-5.4) x10^6/uL Hgb (12.0-16.0) g/dL Hct (35-47) % MCV (78-100) fL MCH (26-32) pg MCHC (32-36) g/dL RDW (11.5-14.0) % Plt Count (150-450) x10^3/uL MPV (7.5-11.0) fL Gran % (36.0-66.0) % Immature Gran % (Auto) (0.00-0.4) % Nucleat RBC Rel Count (0.00-0.1) % Eos # (Auto) (0-0.5) x10^3/uL Immature Gran # (Auto) (0.00-0.03) x10^3u/L Absolute Lymphs (auto) (1.0-4.6) x10^3/uL Absolute Monos (auto) (0.0-1.3) x10^3/uL Absolute Nucleated RBC (0.00-0.01) x10^3u/L Lymphocytes % (24.0-44.0) % Monocytes % (0.0-12.0) % Eosinophils % (0.00-5.0) % Basophils % (0.0-0.4) % Absolute Granulocytes (1.4-6.9) x10^3/uL Basophils # (0-0.4) x10^3/uL Sodium 138 (137-145) mmol/L Potassium 3.3 L (3.5-5.1) mmol/L Chloride 104 (98-107) mmol/L Carbon Dioxide 22 (22-30) mmol/L Anion Gap 14.6 (5-15) MEQ/L BUN 12 (7-17) mg/dL Creatinine 0.72 (0.52-1.04) mg/dL Estimated GFR > 60.0 ML/MIN Glucose 103 (74-106) mg/dL Calcium 8.7 (8.4-10.2) mg/dL Magnesium 2.0 (1.6-2.3) mg/dL Total Bilirubin 0.30 (0.2-1.3) mg/dL AST 20 (14-36) U/L ALT 13 (0-35) U/L Alkaline Phosphatase 65 (38-126) U/L Troponin I < 0.012 (0.000-0.034) ng/mL NT-Pro-B Natriuret Pep < 20.0 (<300) pg/mL Serum Total Protein 6.7 (6.3-8.2) g/dL Albumin 3.8 (3.5-5.0) g/dL Urine Color (Yellow) Urine Appearance (Clear) Urine pH (4.6-8.0) Ur Specific [place] (1.005-1.030) Urine Protein (Negative) Urine Glucose (UA) (Negative) mg/dL Urine Ketones (Negative) Urine Blood (Negative) Urine Nitrite (Negative) Urine Bilirubin (Negative) Urine Urobilinogen (0.2) mg/dL Ur Leukocyte Esterase (Negative) U Hyaline Cast (Auto) (0-2) /LPF Urine Microscopic RBC (0-5) /HPF Urine Microscopic WBC (0-5) /HPF Ur Epithelial Cells (None Seen) /HPF Urine Bacteria (None Seen) /HPF Urine Culture Reflexed (NO) Urine Opiates Level (NEGATIVE) Ur Methadone (NEGATIVE) Urine Barbiturates (NEGATIVE) Ur Phencyclidine (PCP) (NEGATIVE) Urine Amphetamine (NEGATIVE) U Benzodiazepine Level (NEGATIVE) Urine Cocaine (NEGATIVE) Urine Marijuana (THC) (NEGATIVE) Ethyl Alcohol < 10 (0-10) mg/dL Influenza Type A Ag NEGATIVE (NEGATIVE) Influenza Type B Ag NEGATIVE (NEGATIVE) RSV (PCR) NEGATIVE (NEGATIVE) SARS-CoV-2 (PCR) NEGATIVE (NEGATIVE) 03/18/23 Range/Units 19:05 WBC 4.6 (4.0-10.5) x10^3/uL RBC 4.67 (4.1-5.4) x10^6/uL Hgb 13.5 (12.0-16.0) g/dL Hct 40.4 (35-47) % MCV 86.5 (78-100) fL MCH 28.9 (26-32) pg MCHC 33.4 (32-36) g/dL RDW 12.9 (11.5-14.0) % Plt Count 262 (150-450) x10^3/uL MPV 9.7 (7.5-11.0) fL Gran % 62.5 (36.0-66.0) % Immature Gran % (Auto) 0.4 (0.00-0.4) % Nucleat RBC Rel Count 0.0 (0.00-0.1) % Eos # (Auto) 0.04 (0-0.5) x10^3/uL Immature Gran # (Auto) 0.02 (0.00-0.03) x10^3u/L Absolute Lymphs (auto) 1.23 (1.0-4.6) x10^3/uL Absolute Monos (auto) 0.40 (0.0-1.3) x10^3/uL Absolute Nucleated RBC 0.00 (0.00-0.01) x10^3u/L Lymphocytes % 27.0 (24.0-44.0) % Monocytes % 8.8 (0.0-12.0) % Eosinophils % 0.9 (0.00-5.0) % Basophils % 0.4 (0.0-0.4) % Absolute Granulocytes 2.85 (1.4-6.9) x10^3/uL Basophils # 0.02 (0-0.4) x10^3/uL Sodium (137-145) mmol/L Potassium (3.5-5.1) mmol/L Chloride (98-107) mmol/L Carbon Dioxide (22-30) mmol/L Anion Gap (5-15) MEQ/L BUN (7-17) mg/dL Creatinine (0.52-1.04) mg/dL Estimated GFR ML/MIN Glucose (74-106) mg/dL Calcium (8.4-10.2) mg/dL Magnesium (1.6-2.3) mg/dL Total Bilirubin (0.2-1.3) mg/dL AST (14-36) U/L ALT (0-35) U/L Alkaline Phosphatase (38-126) U/L Troponin I (0.000-0.034) ng/mL NT-Pro-B Natriuret Pep (<300) pg/mL Serum Total Protein (6.3-8.2) g/dL Albumin (3.5-5.0) g/dL Urine Color (Yellow) Urine Appearance (Clear) Urine pH (4.6-8.0) Ur Specific [place] (1.005-1.030) Urine Protein (Negative) Urine Glucose (UA) (Negative) mg/dL Urine Ketones (Negative) Urine Blood (Negative) Urine Nitrite (Negative) Urine Bilirubin (Negative) Urine Urobilinogen (0.2) mg/dL Ur Leukocyte Esterase (Negative) U Hyaline Cast (Auto) (0-2) /LPF Urine Microscopic RBC (0-5) /HPF Urine Microscopic WBC (0-5) /HPF Ur Epithelial Cells (None Seen) /HPF Urine Bacteria (None Seen) /HPF Urine Culture Reflexed (NO) Urine Opiates Level (NEGATIVE) Ur Methadone (NEGATIVE) Urine Barbiturates (NEGATIVE) Ur Phencyclidine (PCP) (NEGATIVE) Urine Amphetamine (NEGATIVE) U Benzodiazepine Level (NEGATIVE) Urine Cocaine (NEGATIVE) Urine Marijuana (THC) (NEGATIVE) Ethyl Alcohol (0-10) mg/dL Influenza Type A Ag (NEGATIVE) Influenza Type B Ag (NEGATIVE) RSV (PCR) (NEGATIVE) SARS-CoV-2 (PCR) (NEGATIVE) - Progress Progress: improved Progress Note: Hematuria observed on urinalysis. However patient currently on her menstrual cycle. 03/18/23 23:15 Testing ordered includes chest x-ray, CBC, CMP which reveals low potassium. Potassium replaced. Magnesium administered. COVID test negative. Alcohol n egative. Magnesium normal. Magnesium replaced due to low potassium. BNP negative. Troponin negative. Urinalysis shows hematuria patient currently on her menstrual period. Patient is positive for marijuana and amphetamine. Patient had a headache. Headache resolved. Patient received Benadryl 03/19/23 00:29 Patient states she is ready for discharge. Patient presenting complaint was acute. Complexity of problem addressed is moderate, acute with systemic manifestations. No critical care time. Complexity data reviewed and analyzed is moderate. Test ordered. Test reviewed and analyzed by Dr. See. EMS served as a primary historian upon arrival. Risk of complication and or risk morbidity/mortality of patient management is moderate. Patient received IV medications for management of symptomology. We will discharge home. Patient voices no other complaints or concerns at this time. Portions of this note were created with voice recognition technology. There may be grammatical, spelling, punctuation or sound alike errors Counseled pt/family regarding: lab results, diagnosis, rad results - Departure Departure Disposition: Home Clinical Impression: Dizziness, Polysubstance abuse, Hypokalemia Condition: Stable Critical Care Time: No Referrals: GALINA BRAN [Primary Care Provider] - Follow up/PCP as directed Additional Instructions: Discharge/Care Plan TIMMY BROWN was seen on 03/19/23 in the Emergency Room. The patient was counseled regarding Diagnosis,Lab results, Imaging studies, need for follow up and when to return to the Emergency Room. Prescriptions given: Discharge Note I have spoken with the patient and/or caregivers. I have explained the patient's condition, diagnosis and treatment plan based on the information available to me at this time. I have answered the patient's and/or caregiver's questions and addressed any concerns. The patient and/or caregivers have as good understanding of the patient's diagnosis, condition and treatment plan as can be expected at this point. The vital signs have been stable. The patient's condition is stable and appropriate for discharge from the emergency department. The patient will pursue further outpatient evaluation with the primary care physician or other designated or consulting physician as outlined in the discharge instructions. The patient and/or caregivers are agreeable to this plan of care and follow-up instructions have been explained in detail. The patient and/or caregivers have received these instruction. The patient/and or caregivers are aware that any significant change in condition or worsening of symptoms should prompt an immediate return to this or the closest emergency department or call 911.
[2023-03-18] MEDS ORDERED: TORAdol 30 mg Injection ONE (18:59)
[2023-03-18] MEDS ORDERED: Sodium Chloride 0.9% 1000 ML 1,000 ML ONE ×2 (18:59→20:59)
[2023-03-18] MEDS ORDERED: Compazine 10 MG/2 ML ONE (18:59)
[2023-03-18] MEDS ORDERED: BENADRYL 50 MG/ML ONE (19:13)
[2023-03-18 19:14] LABS: Absolute Neutrophil Ct (ANC) 2.85 x10^3/uL (1.4-6.9); BASOPHIL % 0.4 % (0.0-0.4); Basophil (Absolute #) 0.02 x10^3/uL (0-0.4); Eosinophil % 0.9 % (0.00-5.0); Eosinophil (Absolute #) 0.04 x10^3/uL (0-0.5); Hematocrit 40.4 % (35-47); Hemoglobin 13.5 g/dL (12.0-16.0); IMMATURE GRAN # 0.02 x10^3u/L (0.00-0.03); IMMATURE GRAN % 0.4 % (0.00-0.4); Lymphocyte (Absolute #) 1.23 x10^3/uL (1.0-4.6); Mean Cell Volume 86.5 fL (78-100); Mean Corpuscular Hemoglobin 28.9 pg (26-32); Mean Corpuscular Hgb Concent. 33.4 g/dL (32-36); Mean Platelet Volume 9.7 fL (7.5-11.0); Monocytes % 8.8 % (0.0-12.0); Neutrophil % 62.5 % (36.0-66.0); Platelet Count 262 x10^3/uL (150-450); Red Blood Count 4.67 x10^6/uL (4.1-5.4); Red Cell Distribution Width 12.9 % (11.5-14.0); White Blood Count 4.6 x10^3/uL (4.0-10.5)
[2023-03-18 19:35] LABS: ALBUMIN 3.8 g/dL (3.5-5.0); ALKALINE PHOSPHATASE 65 U/L (38-126); ANION GAP 14.6 MEQ/L (5-15); BLOOD UREA NITROGEN 12 mg/dL (7-17); CHLORIDE 104 mmol/L (98-107); Calcium 8.7 mg/dL (8.4-10.2); Carbon Dioxide 22 mmol/L (22-30); Creatinine 1 0.72 mg/dL (0.52-1.04); EST GLOMERULAR FILTRATION RATE > 60.0 ML/MIN; ETHYL ALCOHOL < 10 mg/dL (0-10); Glucose 103 mg/dL (74-106); NT PRO BNPII < 20.0 pg/mL (<300); Potassium 3.3 mmol/L (3.5-5.1); SGOT/AST 20 U/L (14-36); SGPT/ALT 13 U/L (0-35); SODIUM 138 mmol/L (137-145); Total Protein 6.7 g/dL (6.3-8.2)
[2023-03-18 19:50] LABS: INFLUENZA A NEGATIVE (NEGATIVE); INFLUENZA B NEGATIVE (NEGATIVE); RESPIRATORY SYNCTIAL VIRUS NEGATIVE (NEGATIVE); SARS-CoV-2 Xpert Express NEGATIVE (NEGATIVE)
[2023-03-18] MEDS ORDERED: Klor Con PO ONE ×2 (20:36→20:58)
[2023-03-18] MEDS ORDERED: Magnesium 1 Gm / 100 Ml D5W*** 100 ML IV ONE ×2 (20:58→21:09)
[2023-03-18] MEDS: Magnesium 1 Gm / 100 Ml D5W*** 100 ML IV SCH ×2 (21:04→21:39)
--- NOTE | 2023-03-18 22:47 | XRAY ---
Indication: Chest pain. Comparison: March 14, 2021 Portable chest again demonstrates normal heart and lungs. Bony thorax intact with mild degenerative changes. No new/acute findings.
[2023-03-18 22:57] LABS: Appearance Clear (Clear); Bacteria None Seen /HPF (None Seen); Bilirubin Negative (Negative); Blood Large (Negative); Epithelial Cells None Seen /HPF (None Seen); Glucose, Urine Negative (Negative); Hyaline Casts NONE SEEN /LPF (0-2); Ketones Negative (Negative); Leukocyte Esterase Trace (Negative); Nitrite Negative (Negative); Ph 5.5 (4.6-8.0); Protein,Urine Dip Negative (Negative); RBC >100 /HPF (0-5); WBC 0-2 /HPF (0-5)
[2023-03-18 23:04] LABS: ADD URINE CULTURE? YES (NO)
[2023-03-18 23:09] LABS: Barbiturate,Urine NEGATIVE (NEGATIVE); Benzodiazepine,Urine NEGATIVE (NEGATIVE); Cocaine,Urine NEGATIVE (NEGATIVE); Methadone,Urine NEGATIVE (NEGATIVE); Opiate,Urine NEGATIVE (NEGATIVE); PCP,Urine NEGATIVE (NEGATIVE); THC,Urine POSITIVE (NEGATIVE)
[2023-03-18 23:16] VITALS: PULSE 81
[2023-03-18 23:33] LABS: Amphetamine,Urine POSITIVE (NEGATIVE)
[2023-03-19 00:21] VITALS: BP 103/63
[2023-03-19 00:26] VITALS: O2SAT 95
== END 2023-03-19 00:50 | disposition home or self-care (01) ==
LOC: ED 18:29
DX: R42 Dizziness and giddiness (principal); F19.10 Other psychoactive substance abuse, uncomplicated; E87.6 Hypokalemia; R51.9 Headache, unspecified; R07.9 Chest pain, unspecified; R11.0 Nausea; Z79.899 Other long term (current) drug therapy; Z28.310 Unvaccinated for COVID-19; Z72.0 Tobacco use; Z59.00 Homelessness unspecified
CPT/HCPCS: 0241U; 36000; 36415; 71045; 80053; 80307; 81001; 82077; 83735; 83880; 84484; 85025; 87086; 93005; 93041; 94760; 96360; 96361; 96365; 96366; 96374; 96375; 99285; J1200; J1885; J3475; A9270-GY

== ENCOUNTER 2023-05-12 19:31 | Emergency (ER) | payer OTHER ==
[2023-05-12] MEDS ORDERED: XYLOCAINE 1% HCL 20 ML MDV IJ ONE (19:32)
--- NOTE | 2023-05-12 20:04 | ERPHSYRPT ---
- History of Present Illness Time Seen by Provider: 05/12/23 19:52 Source: patient, family Exam Limitations: no limitations Patient Subjective Stated Complaint: left chin area is swollen, has a sore and my left ear and side of face hurt Triage Nursing Assessment: pt ambulated into ER without diff, significant other at bedside. Pt is alert and oriented. Pt woke up at 7pm tonight and noticed a slight bit of swelling to the left side of her chin and theres a small red bump. Pt states, "I had one of the bumps last week from picking at a hair". Pt c/o left side of her jaw hurting and by her left ear. Physician History: This a 42-year-old white female patient who noticed the sore/tenderness left side of her chin. Within a few hours there was a second area along the chin line. She is also feeling discomfort in her left preauricular area and left cheek. She has not had fevers. However she does not feel well overall. She has never had anything like this before. It is tender for her. Timing/Duration: today Quality: painful Severity: moderate Location: face (Left chin) Possible Causes: no cause identified Associated Symptoms: swelling/mass/lumps (Left chin and lower mandible on the left side) Allergies/Adverse Reactions: No Known Drug Allergies Allergy (Verified 05/12/23 19:44) Home Medications: Desvenlafaxine [Desvenlafaxine ER] 1 ea PO DAILY 10/23/22 [History] Quetiapine Fumarate [Seroquel] 50 mg PO DAILY 10/23/22 [History] Methylphenidate 20 mg TOP DAILY 05/12/23 [History] Hx Tetanus, Diphtheria Vaccination/Date Given: Yes Hx Influenza Vaccination/Date Given: No Hx Pneumococcal Vaccination/Date Given: No Travel Risk - International Travel Have you traveled outside of the country in past 3 weeks: No - Coronavirus Screening Are you exhibiting any of the following symptoms?: No Close contact with a COVID-19 positive Pt in past 14-21 Days: No - Vaccine Status Have you recieved a Covid-19 vaccination: No - Review of Systems Constitutional: No Symptoms Eyes: No Symptoms Ears, Nose, & Throat: No Symptoms Respiratory: No Symptoms Cardiac: No Symptoms Abdominal/Gastrointestinal: No Symptoms Genitourinary Symptoms: No Symptoms Musculoskeletal: No Symptoms Skin: Cellulitis (Mild cellulitis left ricardo and lower mandible), Induration (Left chin and lower mandible edge on the left side) Neurological: No Symptoms Psychological: No Symptoms Endocrine: No Symptoms Hematologic/Lymphatic: No Symptoms Immunological/Allergic: No Symptoms All Other Systems: Reviewed and Negative - Past Medical History Pertinent Past Medical History: Yes Neurological History: No Pertinent History ENT History: No Pertinent History Cardiac History: No Pertinent History Respiratory History: No Pertinent History Endocrine Medical History: No Pertinent History Musculoskeletal History: Arthritis GI Medical History: Gallbladder Disease History: No Pertinent History Psycho-Social History: Depression Female Reproductive Disorders: No Pertinent History Other Medical History: Chronic back pain, Hepatitis C, 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 - Past Surgical History Past Surgical History: Yes Neuro Surgical History: No Pertinent History Cardiac: No Pertinent History Respiratory: No Pertinent History Gastrointestinal: Cholecystectomy Genitourinary: No Pertinent History Musculoskeletal: No Pertinent History Female Surgical History: No Pertinent History Other Surgical History: Left knee, Back - Social History Smoking Status: Current every day smoker How long have you smoked: 20 yrs Exposure to second hand smoke: Yes Alcohol Use: Socially Drug Use: marijuana Patient Lives Alone: No Significant Family History: no pertinent family hx - Female History Hx Last Menstrual Period: April, Hx Now: No - Nursing Vital Signs Nursing Vital Signs: Initial Vital Signs Temperature 97.6 F 05/12/23 19:36 Pulse Rate 80 05/12/23 19:36 Respiratory Rate 20 05/12/23 19:36 Blood Pressure 118/60 05/12/23 19:36 O2 Sat by Pulse Oximetry 98 05/12/23 19:36 Pain Scale Pain Intensity 8 - Physical Exam General Appearance: no apparent distress, alert, anxiety Eye Exam: PERRL/EOMI, eyes nml inspection Ears, Nose, Throat Exam: normal ENT inspection, moist mucous membranes Neck Exam: normal inspection, non-tender, supple, full range of motion Respiratory Exam: airway intact, No chest tenderness, No respiratory distress Gastrointestinal/Abdomen Exam: No tenderness Pelvic Exam: not done Rectal Exam: not done Back Exam: normal inspection, normal range of motion, No CVA tenderness, No vertebral tenderness Extremity Exam: normal inspection, normal range of motion, pelvis stable Neurologic Exam: alert, oriented x 3, cooperative, cue worker II-XII nml as tested, normal mood/affect, nml cerebellar function, nml station & gait, sensation nml Skin Exam: other (Cellulitis and induration left chin and lower left mandibular edge without abscess) Lymphatic Exam: No adenopathy SpO2 Interpretation: normal SpO2: 98 O2 Delivery: Room Air - Course Nursing assessment & vital signs reviewed: Yes - Progress Progress: unchanged Progress Note: 05/12/23 20:10 This patient medical issue is 1 of low complexity. The level complexity and the work-up performed is based on the review of the patient's past medical history, review of the patient's medication list, review of the patient's drug allergy list, history of present illness and physical findings on examination. No laboratory or radiographic studies necessary in this patient. The patient has cellulitis of the left ricardo and left lower mandibular edge. We will provide her with Rocephin 1 g intramuscularly and Bactrim DS 1 orally. In addition we will provide her with 1 [place] 5/325 here in the emergency department and send to [place] 5/325 tablets for home during the evening. Patient is to follow-up with her primary care physician tomorrow, 05/13/2023, for further evaluation management. We will also send a prescription of Bactrim DS remotely to the patient's pharmacy Counseled pt/family regarding: diagnosis, need for follow-up, rad results Medical Desision Making - Independent Historian Additional History obtained from: Spouse - Diagnostic Testing Diagnostic test were ordered, analyzed, and reviewed by me: No - Risk of complications The pt has a mod risk of morbidity or mortality based on: Need for prescription drug management - Departure Departure Disposition: Home Clinical Impression: Cellulitis of chin Condition: Stable Critical Care Time: No Referrals: GALINA BRAN [Primary Care Provider] - Follow up/PCP as directed Additional Instructions: Warm compresses to the left chin cellulitis area 2-3 times a day. Take your medication as prescribed. Call your primary care provider tomorrow, 05/13/2023, to obtain a follow-up appointment for further evaluation management. Prescriptions: Smz/Tmp Ds Tablet [Bactrim Ds Tablet] 1 udtab PO BID #14 tablet
[2023-05-12] MEDS ORDERED: NORCO 5/325 MG PO ONE ×2 (20:11→20:12)
[2023-05-12] MEDS ORDERED: Rocephin 1000 MG INJ IM ONE (20:12)
[2023-05-12] MEDS ORDERED: BACTRIM DS TABLET PO ONE ×2 (20:12→20:15)
[2023-05-12] MEDS ORDERED: NORCO 5/325 MG ONE (20:15)
[2023-05-12] MEDS ORDERED: Rocephin 1000 MG INJ ONE (20:15)
[2023-05-12 20:23] VITALS: BP 109/87; PULSE 88; O2SAT 97
== END 2023-05-12 20:31 | disposition home or self-care (01) ==
LOC: ED 19:31
DX: L03.211 Cellulitis of face (principal); Z79.899 Other long term (current) drug therapy; Z28.310 Unvaccinated for COVID-19; Z72.0 Tobacco use
CPT/HCPCS: 96372; 99283; J0696; A9270-GY

== ENCOUNTER 2023-05-13 12:28 | Emergency (ER) | payer OTHER ==
[2023-05-13 12:48] VITALS: BP 146/86; PULSE 92; O2SAT 98
[2023-05-13] MEDS ORDERED: TORAdol 30 mg Injection IM ONE (12:59)
[2023-05-13] MEDS ORDERED: TORAdol 30 mg Injection ONE (13:01)
--- NOTE | 2023-05-13 13:21 | ERPHSYRPT ---
- History of Present Illness Time Seen by Provider: 05/13/23 13:19 Source: patient Exam Limitations: no limitations Patient Subjective Stated Complaint: Pt states "I was here last night for the swelling in my face, they gave me bactrim shot and norco and I have to work and I need some more pain meds so I can work. I cannot get into my dr until ." Triage Nursing Assessment: Pt presented alert and oriented X 3, skin pwd. Pt ambulates with an upright steady gait, able to speak in clear full sentences. Pt in no apparent respiratory distress. Pt face swollen and red on left side. Physician History: Patient is a 42-year-old female presents to our ED for evaluation of pain control. Patient was in our ED last night. Patient was diagnosed with cellulitis near her chin. Patient was treated with Bactrim. A prescription for the same was forwarded to patient's pharmacy. Patient is here as her pain is reoccurring. Patient was treated with [place] last night. No interval trauma no fever. Patient has had the leaf size picker her Bactrim from the pharmacy. No fever. No systemic manifestations of her localized infection. Patient otherwise voices no other complaints or concerns at this time. Portions of this note were created with voice recognition technology. There may be grammatical, spelling, punctuation or sound alike errors Timing/Duration: today Severity: moderate Modifying Factors: Improves With: nothing Associated Symptoms: denies symptoms Allergies/Adverse Reactions: No Known Drug Allergies Allergy (Verified 05/12/23 19:44) Home Medications: Desvenlafaxine [Desvenlafaxine ER] 1 ea PO DAILY 10/23/22 [History] Quetiapine Fumarate [Seroquel] 50 mg PO DAILY 10/23/22 [History] Methylphenidate 20 mg TOP DAILY 05/12/23 [History] Hx Tetanus, Diphtheria Vaccination/Date Given: Yes Hx Influenza Vaccination/Date Given: No Hx Pneumococcal Vaccination/Date Given: No Travel Risk - International Travel Have you traveled outside of the country in past 3 weeks: No - Coronavirus Screening Are you exhibiting any of the following symptoms?: No Close contact with a COVID-19 positive Pt in past 14-21 Days: No - Vaccine Status Have you recieved a Covid-19 vaccination: No - Review of Systems Constitutional: No Symptoms, No Fever, No Chills Eyes: No Symptoms Ears, Nose, & Throat: No Symptoms Respiratory: No Symptoms, No Cough, No Dyspnea Cardiac: No Symptoms, No Chest Pain, No Edema, No Syncope Abdominal/Gastrointestinal: No Symptoms, No Abdominal Pain, No Nausea, No Vomiting, No Diarrhea Genitourinary Symptoms: No Symptoms, No Dysuria Musculoskeletal: No Symptoms, No Back Pain, No Neck Pain Skin: No Symptoms, No Rash Neurological: No Symptoms, No Dizziness, No Focal Weakness, No Sensory Changes Psychological: No Symptoms Endocrine: No Symptoms Hematologic/Lymphatic: No Symptoms Immunological/Allergic: No Symptoms All Other Systems: Reviewed and Negative - Past Medical History Pertinent Past Medical History: Yes Neurological History: No Pertinent History ENT History: No Pertinent History Cardiac History: No Pertinent History Respiratory History: No Pertinent History Endocrine Medical History: No Pertinent History Musculoskeletal History: Arthritis GI Medical History: Gallbladder Disease History: No Pertinent History Psycho-Social History: Depression Female Reproductive Disorders: No Pertinent History Other Medical History: Chronic back pain, Hepatitis C, 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 - Past Surgical History Past Surgical History: Yes Neuro Surgical History: No Pertinent History Cardiac: No Pertinent History Respiratory: No Pertinent History Gastrointestinal: Cholecystectomy Genitourinary: No Pertinent History Musculoskeletal: No Pertinent History Female Surgical History: No Pertinent History Other Surgical History: Left knee, Back - Social History Smoking Status: Current every day smoker How long have you smoked: 20 yrs Exposure to second hand smoke: Yes Alcohol Use: Socially Drug Use: marijuana Patient Lives Alone: No Significant Family History: no pertinent family hx - Female History Hx Last Menstrual Period: 05/06/2023 Hx Now: No - Nursing Vital Signs Nursing Vital Signs: Initial Vital Signs Temperature 97.5 F 05/13/23 12:43 Pulse Rate 92 H 05/13/23 12:43 Respiratory Rate 20 05/13/23 12:43 Blood Pressure 146/86 05/13/23 12:43 O2 Sat by Pulse Oximetry 98 05/13/23 12:43 Pain Scale Pain Intensity 6 - Physical Exam General Appearance: no apparent distress, alert Eye Exam: PERRL/EOMI, eyes nml inspection Ears, Nose, Throat Exam: normal ENT inspection, TMs normal, pharynx normal, moist mucous membranes Neck Exam: normal inspection, non-tender, supple, full range of motion Respiratory Exam: normal breath sounds, lungs clear, airway intact, No respiratory distress Cardiovascular Exam: regular rate/rhythm Gastrointestinal/Abdomen Exam: soft, normal bowel sounds, No tenderness, No mass Back Exam: normal inspection, normal range of motion, No CVA tenderness, No vertebral tenderness Extremity Exam: normal inspection, normal range of motion, pelvis stable Neurologic Exam: alert, oriented x 3, cooperative, normal mood/affect, nml cerebellar function, nml station & gait, sensation nml, No motor deficits Skin Exam: normal color, warm, dry, other (Cellulitis left lower jaw.), No rash Lymphatic Exam: No adenopathy SpO2 Interpretation: normal SpO2: 98 O2 Delivery: Room Air - Course Nursing assessment & vital signs reviewed: Yes Ordered Tests: Medication Summary Discontinued Medications Generic Name Dose Route Start Last Admin Trade Name Freq PRN Reason Stop Dose Admin Ketorolac Tromethamine 30 mg 05/13/23 12:59 05/13/23 13:03 Ketorolac Tromethamine 30 Mg/Ml Inj IM 05/13/23 13:00 30 mg STAT ONE Administration Ketorolac Tromethamine Confirm 05/13/23 13:01 Ketorolac Tromethamine 30 Mg/Ml Inj Administered 05/13/23 13:02 Dose 30 mg .ROUTE .[employer] ONE - Progress Progress: improved Progress Note: Patient a 42-year-old female presents to our ED for pain control. Patient has a cellulitis of her left jawline. Patient has yet to leaf size picker her antibiotic prescription of the pharmacy. Patient will discharge home with [place]. Patient received a Toradol shot in our ED. A prescription for the same was forwarded to patient's pharmacy. No indication for further work-up. No systemic manifestations of localized skin infection. Will discharge home. Patient agrees to follow-up with her primary care doctor as planned. She voices no other complaints or concerns at this time. Portions of this note were created with voice recognition technology. There may be grammatical, spelling, punctuation or sound alike errors Complexity of problem addressed is low acute uncomplicated Complexity of data reviewed and analyzed is none. No specialized testing ordered. Diagnosis made based on history and physical examination. Visit complication and or risk of morbidity/mortality of patient management is moderate. Patient received IM Toradol and a prescription for the same was forwarded to patient's pharmacy. Patient currently has an appointment scheduled with her primary care physician for Thursday. Patient will follow-up as scheduled. Vital stable. Plan of care established via shared decision making. Time to discharge patient is approximately 10 to 15 minutes. Patient voices no other complaints or concerns at this time. Portions of this note were created with voice recognition technology. There may be grammatical, spelling, punctuation or sound alike errors 05/13/23 13:24 Counseled pt/family regarding: diagnosis, need for follow-up - Departure Departure Disposition: Home Clinical Impression: Pain, cellultis Condition: Stable Critical Care Time: No Referrals: GALINA BRAN [Primary Care Provider] - Follow up/PCP as directed Additional Instructions: Discharge/Care Plan TIMMY BROWN was seen on 05/13/23 in the Emergency Room. The patient was counseled regarding Diagnosis,Lab results, Imaging studies, need for follow up and when to return to the Emergency Room. Prescriptions given: Discharge Note I have spoken with the patient and/or caregivers. I have explained the patient's condition, diagnosis and treatment plan based on the information available to me at this time. I have answered the patient's and/or caregiver's questions and addressed any concerns. The patient and/or caregivers have as good understanding of the patient's diagnosis, condition and treatment plan as can be expected at this point. The vital signs have been stable. The patient's condition is stable and appropriate for discharge from the emergency department. The patient will pursue further outpatient evaluation with the primary care physician or other designated or consulting physician as outlined in the discharge instructions. The patient and/or caregivers are agreeable to this plan of care and follow-up instructions have been explained in detail. The patient and/or caregivers have received these instruction. The patient/and or caregivers are aware that any significant change in condition or worsening of symptoms should prompt an immediate return to this or the closest emergency department or call 911. Prescriptions: Ketorolac Trometh 10 mg Tab [TORAdol 10 MG TABLET] 10 mg PO TID 5 Days #15 tablet
== END 2023-05-13 13:32 | disposition home or self-care (01) ==
LOC: ED 12:28
DX: R51.9 Headache, unspecified (principal); L03.211 Cellulitis of face; Z79.899 Other long term (current) drug therapy; Z72.0 Tobacco use
CPT/HCPCS: 96372; 99282; J1885

== ENCOUNTER 2023-08-22 10:48 | Emergency (ER) | payer OTHER ==
--- NOTE | 2023-08-22 10:59 | ERPHSYRPT ---
- History of Present Illness Time Seen by Provider: 08/22/23 10:59 Source: patient Exam Limitations: no limitations Physician History: This is a 43-year-old overweight white female patient who fell in Ground shower yesterday onto her left shoulder. Patient has a history of chronic low back pain, arthritis, depression and hepatitis C. She is on Suboxone and last took her dose yesterday. She has nearly full range of motion of her left shoulder but when she tries to extend it superiorly, she is having pain. She has no pain any other place. Occurred: yesterday Quality: intermittent, aching Severity of Pain-Max: moderate Severity of Pain-Current: mild (To moderate depending on the position) Extremities Pain Location: shoulder: left Modifying Factors: Improves With: movement Associated Symptoms: none Allergies/Adverse Reactions: No Known Drug Allergies Allergy (Verified 08/22/23 11:24) Home Medications: Buprenorphine HCl/Naloxone HCl [Buprenorphine-Nalox 8-2 mg Tab] 1 tab PO BID 08/22/23 [History] Hx Tetanus, Diphtheria Vaccination/Date Given: Yes Hx Influenza Vaccination/Date Given: No Hx Pneumococcal Vaccination/Date Given: No Travel Risk - International Travel Have you traveled outside of the country in past 3 weeks: No - Coronavirus Screening Are you exhibiting any of the following symptoms?: No Close contact with a COVID-19 positive Pt in past 14-21 Days: No - Vaccine Status Have you recieved a Covid-19 vaccination: No - Review of Systems Constitutional: No Symptoms Eyes: No Symptoms Ears, Nose, & Throat: No Symptoms Respiratory: No Symptoms Cardiac: No Symptoms Abdominal/Gastrointestinal: No Symptoms Genitourinary Symptoms: No Symptoms Musculoskeletal: No Symptoms, Fall, Injury Skin: No Symptoms (Left shoulder) Neurological: No Symptoms Psychological: No Symptoms Endocrine: No Symptoms Hematologic/Lymphatic: No Symptoms Immunological/Allergic: No Symptoms All Other Systems: Reviewed and Negative - Past Medical History Pertinent Past Medical History: Yes Neurological History: No Pertinent History ENT History: No Pertinent History Cardiac History: No Pertinent History Respiratory History: No Pertinent History Endocrine Medical History: No Pertinent History Musculoskeletal History: Arthritis GI Medical History: Gallbladder Disease History: No Pertinent History Psycho-Social History: Depression Female Reproductive Disorders: No Pertinent History Other Medical History: Chronic back pain, Hepatitis C, 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 - Past Surgical History Past Surgical History: Yes Neuro Surgical History: No Pertinent History Cardiac: No Pertinent History Respiratory: No Pertinent History Gastrointestinal: Cholecystectomy Genitourinary: No Pertinent History Musculoskeletal: No Pertinent History Female Surgical History: No Pertinent History Other Surgical History: Left knee, Back - Social History Smoking Status: Current every day smoker How long have you smoked: 20 yrs Exposure to second hand smoke: Yes Alcohol Use: Socially Drug Use: marijuana Patient Lives Alone: Yes Significant Family History: no pertinent family hx - Nursing Vital Signs Nursing Vital Signs: Initial Vital Signs Temperature 98 F 08/22/23 11:20 Pulse Rate 83 08/22/23 11:20 Respiratory Rate 18 08/22/23 11:20 Blood Pressure 143/75 08/22/23 11:20 O2 Sat by Pulse Oximetry 97 08/22/23 11:20 Pain Scale Pain Intensity 10 - Physical Exam General Appearance: no apparent distress, alert, anxiety Eyes, Ears, Nose, Throat Exam: normal ENT inspection, moist mucous membranes Neck Exam: normal inspection, non-tender, supple, full range of motion Cardiovascular/Respiratory Exam: chest non-tender, no respiratory distress Abdominal Exam: non-tender Back Exam: normal inspection, normal range of motion, No CVA tenderness, No vertebral tenderness Shoulder Exam: normal inspection, bone tenderness (Left), limited ROM (Left shoulder), soft tissue tenderness (Left) Elbow/Forearm Exam: normal inspection, non-tender, no evidence of injury, normal ROM Wrist Exam: normal inspection, non-tender, no evidence of injury, normal ROM Hand Exam: normal inspection, non-tender, no evidence of injury, normal ROM Neuro/Tendon Exam: normal sensation, normal motor functions, normal tendon functions, responds to pain, no evidence tendon injury Mental Status Exam: alert, oriented x 3, cooperative Skin Exam: normal color, warm, dry SpO2 Interpretation: normal O2 Delivery: Room Air - Course Nursing assessment & vital signs reviewed: Yes Ordered Tests: Active Orders 24 hr Category Date Time Status HUMERUS Stat Exams 08/22/23 11:42 Completed SHOULDER Stat Exams 08/22/23 11:42 Completed Medication Summary Discontinued Medications Generic Name Dose Route Start Last Admin Trade Name Freq PRN Reason Stop Dose Admin Methylprednisolone Sodium 0 mg 08/22/23 12:16 Succinate 125 mg/ Sterile IM 08/22/23 12:17 Water 2 ml STAT ONE Orphenadrine Citrate 60 mg 08/22/23 12:19 Orphenadrine Citrate 60 Mg/2 Ml Vial IM 08/22/23 12:20 STAT ONE - Progress Progress: improved, pain not gone completely Progress Note: 08/22/23 12:23 This patient's medical issue is 1 of low complexity. The level of complexity in the work-up performed is based on review of the patient's past medical history, review the patient's medication list, review the patient's drug allergy list, history of present illness and physical findings on examination. Work-up in this patient includes x-ray of her left shoulder and left humerus. The x-ray of the left humerus was interpreted by the radiologist and I reviewed the impression. There is moderate degenerative arthropathy present without evidence of acute fracture or dislocation. X-ray of the left shoulder shows no acute fracture or dislocation. However there is moderate AC degenerative arthropathy. Medical Desision Making - Independent Historian Additional History obtained from: Mother - Diagnostic Testing Diagnostic test were ordered, analyzed, and reviewed by me: Yes Radiological Interpretation: Reviewed by me, Teleradiologist Report - Risk of complications The pt has a mod risk of morbidity or mortality based on: Need for prescription drug management - Departure Departure Disposition: Home Clinical Impression: Left shoulder pain Condition: Stable Critical Care Time: No Referrals: GALINA BRAN [Primary Care Provider] - Follow up/PCP as directed Additional Instructions: Wear the sling for comfort. Take your medication as prescribed. Follow-up with your primary care physician by phone today, 08/22/2023, to make arrange for follow-up appointment in the next 3 to 5 days. You may also follow-up at the [facility] orthopedic clinic. It is a walk-in clinic open Friday through Friday 8 AM to 10 AM. You do not need an appointment to be seen. Prescriptions: Prednisone 10 mg [Deltasone 10 mg] 10 mg PO TID #12 tablet Orphenadrine Citrate 100 mg [Norflex 100 MG Tablet] 100 mg PO BID #10 tab
[2023-08-22 11:35] VITALS: RESP 18; TEMP 98
--- NOTE | 2023-08-22 12:06 | XRAY ---
Indication: Pain following fall. Comparison: None 3 view left shoulder demonstrates moderate AC degenerative arthropathy. No other bony, articular, or soft tissue abnormalities.
--- NOTE | 2023-08-22 12:06 | XRAY ---
Indication: Pain following fall. Comparison: None 2 view left humerus demonstrates moderate AC degenerative arthropathy. No other bony, articular, or soft tissue abnormalities.
[2023-08-22] MEDS ORDERED: solu-MEDROL 125 MG, Sterile H2O 10 ml 2 ML IM ONE ×2 (12:16)
[2023-08-22] MEDS ORDERED: Norflex 60 MG/2 ML IM ONE (12:19)
[2023-08-22] MEDS ORDERED: Sterile H2O 10 ml IJ ONE (12:34)
[2023-08-22] MEDS ORDERED: Norflex 60 MG/2 ML ONE (12:34)
[2023-08-22] MEDS ORDERED: solu-MEDROL ONE (12:35)
[2023-08-22 12:52] VITALS: BP 132/85; PULSE 80; O2SAT 98
== END 2023-08-22 12:53 | disposition home or self-care (01) ==
LOC: ED 10:48
DX: M25.512 Pain in left shoulder (principal); Z79.891 Long term (current) use of opiate analgesic; Z79.52 Long term (current) use of systemic steroids; Z28.310 Unvaccinated for COVID-19; Z72.0 Tobacco use
CPT/HCPCS: 73030; 73060; 96372; 99283; J2360; J2930